=== PATIENT | female | born 1960 | race Two or more races ===

== ENCOUNTER 2019-10-04 08:37 | Inpatient (IN) | payer BC ==
[2019-10-04] MEDS ORDERED: ONDANSETRON 4 MG/2 ML VIAL IVPUSH ONE (09:00)
[2019-10-04] MEDS ORDERED: SODIUM CHLORIDE 1,000 ML IV STA ×2 (09:00→10:56)
--- NOTE | 2019-10-04 09:16 | PDOC ---
Attending Attestation - Resident Resident Name: Harpreet Devi - ED Attending Attestation I have performed the following: I have examined & evaluated the patient, The case was reviewed & discussed with the resident, I agree w/resident's findings & plan, Exceptions are as noted - HPI HPI: 10/04/19 09:29 59y F hx of htn, hl, iddm, presents with nbnb vomiting x 2 days associated with epigastric discomfort. Denies any hemetemsis, f/c, alex abd pain. Patient states that the discomfort is present when she tries to vomit, states that her vomitus looks like food denies seeing any blood or coffee-ground appearance. Patient states that her symptoms seem to be worse after eating. Denies prior similar sx in the past, nor ecent travel or known sick contacts. She also denies any other symptoms including chest pain, palpitations, headache, dizziness, Diarrhea, melena, BPR, dysuria, hematuria, vaginal discharge. Patient surgical history including 3 C-sections - Physicial Exam PE: 10/04/19 10:23 GENERAL: The patient is awake, alert, and fully oriented, Nontoxic - in no acute distress. HEAD: Normocephalic, atraumatic. EYES: extraocular movements intact, sclera anicteric, conjunctiva clear. ENT: Normal voice, Moist mucous membranes. NECK: Normal range of motion, supple LUNGS: Breath sounds equal, clear to auscultation bilaterally. No wheezes, no rhonchi, no rales. HEART: Regular rate and rhythm, normal S1 and S2 without murmur, rub or gallop. ABDOMEN: Soft, nontender, No guarding, no rebound. No CVA tenderness EXTREMITIES: Normal range of motion, no edema. NEUROLOGICAL: No facial assymetry, Normal speech, Moving all 4 extremities spontaneously and symmetrically PSYCH: Normal mood, normal affect. SKIN: Warm, Dry, normal turgor, - Medical Decision Making 10/04/19 10:23 Differential for the patient's symptoms include possible gastritis, there is no focal tenderness to suggest appendicitis, cholecystitis, obstruction or any other surgical emergency. Patient is also well-appearing, no distress Will obtain blood work will give the patient's antiemetic and Pepcid for symptomatic relief Will reassess 10/04/19 11:59 Patient's blood work was reviewed Glucose slightly elevated, likely due to not having taken medications Lactic acid also slightly elevated 2.2 should resolve with Hydration The patient's urine noted for elevated levels of bacteria suspicious for UTI. 10/04/19 12:15 Patient is feeling persistently nauseous, denies any Associated pain at this time, with attempted To tolerate water however still felt nauseous will give the patient some Phenergan. abd was resassessed and is soft and without tenderness will reassess 10/04/19 14:42 The patient's persistently nauseous and actively vomiting. Her abdomen is soft nontender however will obtain a CT of her abdomen to rule out obstruction As it is unclear why she still persistent the unable to tolerate oral intake. 10/04/19 16:42 CT noted for concentric wall thickening along length of duodenal sweep - underidstnsion vs enteritis pt still persistently nauseas/vomiting. will admit for further management. Heart Score/ECG Review - ECG Impressions Comment:: 10/04/19 14:38 Twelve-lead EKG was performed and reviewed by me. There is normal sinus rhythm with a normal rate. rate of 84 The axis is normal. Intervals normal marked sinus arrythmia
--- NOTE | 2019-10-04 09:22 | PDOC ---
History of Present Illness - General Chief Complaint: Nausea/Vomiting Stated Complaint: VOMITING Time Seen by Provider: 10/04/19 08:59 History Source: Patient Exam Limitations: No Limitations - History of Present Illness Initial Comments: 10/04/19 09:17 59 yo female pmh HTN, IDDM, HLD presents to the ED for NB/NB vomiting and epigastric abdominal pain. Pt states the symptoms began 2 days ago, vomiting over 10 times per day, unable to keep food or liquids down. Pain described as sharp, diffuse abdomen concentrated in the epigastric region, made worse with eating. Denies recent travel, sick contacts, F/C, CP, SOB, back pain, changes in bowel or bladder habits. Only abdominal surgery hysterectomy. Pt states recent change from Novolog to Tresiba. Did not take her medication this AM due to vomiting (Metoprolol 100 mg). Past History - Past Medical History Allergies/Adverse Reactions: Allergies Allergy/AdvReac Type Severity Reaction Status Date / Time No Known Allergies Allergy Verified 10/04/19 08:52 Home Medications: Ambulatory Orders Amlodipine Besylate 10 mg PO DAILY 10/04/19 Calcium Carbonate [Oysco-500] 500 mg PO DAILY 10/04/19 Chlorthalidone 12.5 mg PO DAILY 10/04/19 Empagliflozin [Jardiance] 10 mg PO DAILY 10/04/19 Ergocalciferol (Vitamin D2) [Vitamin D2] 50,000 unit PO DAILY 10/04/19 Folic Acid 1 mg PO DAILY 10/04/19 Insulin NPH Hum/Reg Insulin Hm [Novolin 70-30 Flexpen] 40 unit SQ ACDIN Insulin NPH Hum/Reg Insulin Hm [Novolin 70-30 Flexpen] 50 unit SQ ACBK 10/04/19 Liraglutide [Victoza -] 1.8 mg SQ DAILY 10/04/19 Lisinopril [Prinivil -] 40 mg PO DAILY 10/04/19 Metformin HCl [Glucophage] 1,000 mg PO BID 10/04/19 Metoprolol Succinate 100 mg PO DAILY 10/04/19 Pioglitazone HCl [Actos] 30 mg PO DAILY 10/04/19 Rosuvastatin [Crestor -] 40 mg PO DAILY 10/04/19 COPD: No Diabetes: Yes HTN: Yes Hypercholesterolemia: Yes Thyroid Disease: Yes Other medical history: arthritis, scoriasis - Immunization History Immunization Up to Date: Yes - Psycho Social/Smoking Cessation Hx Smoking History: Never smoked Hx Alcohol Use: No Drug/Substance Use Hx: No Review of Systems - Review of Systems Constitutional: No: Chills, Fever Respiratory: No: Shortness of Breath Cardiac (ROS): No: Chest Pain ABD/GI: Yes: Nausea, Vomiting, Other (abdominal pain). No: Constipated, Diarrhea : No: Burning, Dysuria, Flank Pain, Hematuria Musculoskeletal: No: Back Pain *Physical Exam - Vital Signs Last Vital Signs Temp Pulse Resp BP Pulse Ox 98.0 F 88 18 182/73 H 100 10/04/19 08:52 10/04/19 08:52 10/04/19 08:52 10/04/19 08:52 10/04/19 08:52 - Physical Exam General Appearance: Yes: Nourished, Appropriately Dressed HEENT: positive: EOMI Neck: positive: Supple. negative: Carotid bruit Respiratory/Chest: positive: Lungs Clear, Normal Breath Sounds. negative: Respiratory Distress, Accessory Muscle Use, Rapid RR, Crackles, Rales, Rhonchi, Stridor, Wheezing Cardiovascular: positive: Regular Rhythm, Regular Rate, S1, S2. negative: Edema , JVD, Murmur Vascular Pulses: Dorsalis-Pedis (R): 4+, Doralis-Pedis (L): 4+ Gastrointestinal/Abdominal: positive: Flat, Soft, Tenderness (epigastric and RUQ ). negative: Pulsatile Mass, Protuberent, Distended, Guarding, Rebound Musculoskeletal: negative: CVA Tenderness Extremity: positive: Normal Capillary Refill, Normal Inspection, Normal Range of Motion Integumentary: positive: Normal Color, Dry, Warm Neurologic: positive: Fully Oriented, Alert, Normal Mood/Affect ED Treatment Course - LABORATORY CBC & Chemistry Diagram: 10/04/19 09:00 10/04/19 09:00 Medical Decision Making - Medical Decision Making 10/04/19 09:50 59 yo female pmh HTN, IDDM, HLD presents to the ED for NB/NB vomiting and epigastric abdominal pain. Pt states the symptoms began 2 days ago, vomiting over 10 times per day, unable to keep food or liquids down. Pain described as sharp, diffuse abdomen concentrated in the epigastric region, made worse with eating. Denies recent travel, sick contacts, F/C, CP, SOB, back pain, changes in bowel or bladder habits. Only abdominal surgery hysterectomy. Pt states recent change from Novolog to Tresiba. Did not take her medication this AM due to vomiting (Metoprolol 100 mg). vitals show elevated CP 180s systolic, did not take BP medication, will give in the ED Labs including Cardiac profile sent fluids. pepcid, zofran given Bedside sono ED shows 2.6 mm AGW, not dilated, no stones, neg sono murphys, difficulty attaining CBD will reassess after medications and labs 10/04/19 12:16 Pt reports improvement in pain and denies vomiting in the ED however, she feels persistently nauseas. Will try promethazine and reassess 10/04/19 18:12 Pt has no relief, continues to vomit after multiple modalities CTAP done, neg for acute pathology Pt to be admitted for intractable vomiting, possible gastroperisis Discharge - Discharge Information Problems reviewed: Yes Clinical Impression/Diagnosis: Intractable vomiting with nausea - Admission Yes - Follow up/Referral - Patient Discharge Instructions - Post Discharge Activity
[2019-10-04] MEDS ORDERED: ONDANSETRON 4 MG/2 ML VIAL ONE (09:27)
[2019-10-04] MEDS ORDERED: METOPROLOL TARTRATE 50 MG TABLET (FP) PO ONE (09:49)
[2019-10-04 10:06] LABS: BASO % 0.7 % (0-2.0); HEMATOCRIT 40.6 % (32.4-45.2); HEMOGLOBIN 13.8 GM/dL (10.7-15.3); LYMPH % 13.5 % (8-40); MCH 28.2 pg (25.7-33.7); MEAN PLT VOLUME 8.6 fl (7.5-11.1); MONO % 4.6 % (3.8-10.2); NEUT % 81.2 % (42.8-82.8); PLATELET COUNT 351 K/MM3 (134-434); RBC 4.89 M/mm3 (3.60-5.2); WHITE BLOOD COUNT 11.6 K/mm3 (4.0-10.0)
[2019-10-04 10:18] LABS: INR 1.09 (0.83-1.09); PROTHROMBIN TIME (PATIENT) 12.9 SEC (9.7-13.0)
[2019-10-04] MEDS ORDERED: METOCLOPRAMIDE HCL INJECTION 10 MG/2 ML VIAL IVPUSH ONE (10:55)
[2019-10-04] MEDS ORDERED: METOCLOPRAMIDE HCL INJECTION 10 MG/2 ML VIAL ONE (10:56)
[2019-10-04 10:58] LABS: ALBUMIN 4.5 g/dl (3.4-5.0); ALK PHOS 63 U/L (45-117); ANION GAP 11 MMOL/L (8-16); BILIRUBIN,TOTAL 0.7 mg/dL (0.2-1); BLOOD UREA NITROGEN 13.9 mg/dL (7-18); CALCIUM 9.2 mg/dL (8.5-10.1); CHLORIDE 96 mmol/L (98-107); CO2 27 mmol/L (21-32); CREATININE 0.9 mg/dL (0.55-1.3); GLUCOSE,RANDOM 255 mg/dL (74-106); POTASSIUM 3.6 mmol/L (3.5-5.1); SGOT/AST 18 U/L (15-37); SGPT/ALT 27 U/L (13-61); SODIUM 135 mmol/L (136-145); TOT PROT 8.4 g/dl (6.4-8.2)
[2019-10-04] MEDS ORDERED: FAMOTIDINE 20 MG/50 ML IVPB 20 MG/50 ML MG IVPB ONE (11:00)
[2019-10-04 11:09] LABS: EPI CELLS 1.5 /HPF (0-5/HPF); HYALINE CASTS 2 /lpf (0-8); PH,URINE 8.5 (5.0-8.0); URINE APPEARANCE CLEAR; URINE BACTERIA 1509.8 /hpf (NEGATIVE); URINE BILIRUBIN NEGATIVE (NEGATIVE); URINE COLOR YELLOW; URINE GLUCOSE (UA) 3+ (NEGATIVE); URINE KETONE 3+ (NEGATIVE); URINE LEUK ESTERASE NEGATIVE (NEGATIVE); URINE NITRITE NEGATIVE (NEGATIVE); URINE PROTEIN 1+ (NEGATIVE); URINE RBC 2 /hpf (0-4); URINE UROBILINOGEN 0.2 mg/dL (0.2-1.0); URINE WBC 3 /hpf (0-5)
[2019-10-04] MEDS ORDERED: MAG HYDROX/AL HYDROX/SIMETH -MYLANTA- ORAL SUSPENSION PO ONE (12:15)
[2019-10-04] MEDS ORDERED: PROMETHAZINE HCL 25 MG/1 ML VIAL IVPUSH ONE (12:15)
[2019-10-04] MEDS ORDERED: PROMETHAZINE HCL 25 MG/1 ML VIAL ONE (13:22)
[2019-10-04] MEDS ORDERED: MAG HYDROX/AL HYDROX/SIMETH 30 ML UNIT-DOSE CUP ONE (13:22)
[2019-10-04 14:21] LABS: LIPASE 100 U/L (73-393)
--- NOTE | 2019-10-04 15:31 | EKG ---
Test Reason : Blood Pressure : / mmHG Vent. Rate : 084 BPM Atrial Rate : 084 BPM P-R Int : 170 ms QRS Dur : 100 ms QT Int : 402 ms P-R-T Axes : 036 040 027 degrees QTc Int : 475 ms SINUS RHYTHM WITH MARKED SINUS ARRHYTHMIA LEFT ATRIAL ENLARGEMENT WHEN COMPARED WITH ECG OF 04-AUG-2003 10:08, QT HAS LENGTHENED Confirmed by LEATHA STEVENS MD ([id number]) on 10/04/2019 3:31:32 PM Referred By: Confirmed By:LEATHA STEVENS MD
[2019-10-04] MEDS ORDERED: ONDANSETRON 4 MG/2 ML VIAL IVPUSH PRN (18:26)
[2019-10-04] MEDS ORDERED: TRIMETHOBENZAMIDE HCL 200MG/2ML INJ IM PRN (18:34)
--- NOTE | 2019-10-04 18:46 | HP ---
CHIEF COMPLAINT: VOMITING PCP: Dr. Ricketts ([facility]) HISTORY OF PRESENT ILLNESS: This is a 59 y/o F with a PMHx of HTN, IDDM, HLD who presents from home c/o constant nausea and NBNB vomiting for 3 days for a total of ten episodes. It is associated with myalgia, chills, and fatigue. Patient denies any recent travel, sick contacts, fevers, cough, sob, sore throat , rhinorrhea, cp, bowel complaints. She does not remember what she ate that day but endorses she is the only sick one out of those living with her and denies eating food from a restaurant. Pt admits to getting the flu shot this year. She lives in [place] at home with her daughter and mother. 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 ER course was notable for: (1) zofran given, IVF boluses (2) wbc 11.6 (3) LA- 2.2 that reduced to 1.1 Recent Travel: PAST MEDICAL HISTORY: as listed above PAST SURGICAL HISTORY: 3 c-sections Social History: Smoking:denies Alcohol:denies Drugs: denies Allergies No Known Allergies Allergy (Verified 10/04/19 08:52) HOME MEDICATIONS: Home Medications Medication Instructions Recorded Amlodipine Besylate 10 mg PO DAILY 10/04/19 Calcium Carbonate [Oysco-500] 500 mg PO DAILY 10/04/19 Chlorthalidone 12.5 mg PO DAILY 10/04/19 Empagliflozin [Jardiance] 10 mg PO DAILY 10/04/19 Ergocalciferol (Vitamin D2) 50,000 unit PO DAILY 10/04/19 [Vitamin D2] Folic Acid 1 mg PO DAILY 10/04/19 Insulin NPH Hum/Reg Insulin Hm 40 unit SQ ACDIN 10/04/19 [Novolin 70-30 Flexpen] Insulin NPH Hum/Reg Insulin Hm 50 unit SQ ACBK 10/04/19 [Novolin 70-30 Flexpen] Liraglutide [Victoza -] 1.8 mg SQ DAILY 10/04/19 Lisinopril [Prinivil -] 40 mg PO DAILY 10/04/19 Metformin HCl [Glucophage] 1,000 mg PO BID 10/04/19 Metoprolol Succinate 100 mg PO DAILY 10/04/19 Pioglitazone HCl [Actos] 30 mg PO DAILY 10/04/19 Rosuvastatin [Crestor -] 40 mg PO DAILY 10/04/19 REVIEW OF SYSTEMS Negative except above PHYSICAL EXAMINATION Vital Signs - 24 hr 10/04/19 10/04/19 10/04/19 08:52 09:56 13:22 Temperature 98.0 F 98.5 F 100.6 F H Pulse Rate 88 Pulse Rate [ Right Radial] Respiratory 18 Rate Blood Pressure 182/73 H Blood Pressure [Left Arm] O2 Sat by Pulse 100 Oximetry (%) 10/04/19 16:57 Temperature 98.7 F Pulse Rate Pulse Rate [ 90 Right Radial] Respiratory 18 Rate Blood Pressure Blood Pressure 158/78 [Left Arm] O2 Sat by Pulse 97 Oximetry (%) GENERAL: Awake, alert, and fully oriented, in no acute distress. LUNGS: Breath sounds equal, clear to auscultation bilaterally. No wheezes, and no crackles. No accessory muscle use. HEART: Regular rate and rhythm, normal S1 and S2 without murmur, rub or gallop. ABDOMEN: Soft, nontender, not distended, normoactive bowel sounds, no guarding, but LLQ pain that radiates to her back. LOWER EXTREMITIES: 2+ pulses, warm, well-perfused. No calf tenderness. No peripheral edema. NEUROLOGICAL: Cranial nerves II-XII intact. Normal speech. Normal gait. PSYCHIATRIC: Cooperative. Good eye contact. Appropriate mood and affect. SKIN: Warm, dry, normal turgor, no rashes or lesions noted, poor capillary refill. Laboratory Results - last 24 hr 10/04/19 10/04/19 10/04/19 09:00 09:00 09:00 WBC 11.6 H RBC 4.89 Hgb 13.8 Hct 40.6 MCV 83.0 MCH 28.2 MCHC 34.0 RDW 14.0 Plt Count 351 MPV 8.6 Absolute Neuts (auto) 9.4 H Neutrophils % 81.2 Lymphocytes % 13.5 Monocytes % 4.6 Eosinophils % 0.0 Basophils % 0.7 Nucleated RBC % 0 PT with INR 12.90 INR 1.09 Sodium 135 L Potassium 3.6 Chloride 96 L Carbon Dioxide 27 Anion Gap 11 BUN 13.9 Creatinine 0.9 Est GFR (CKD-EPI)AfAm 81.11 Est GFR (CKD-EPI)NonAf 69.99 POC Glucometer Random Glucose 255 H Lactic Acid Calcium 9.2 Magnesium 2.0 Total Bilirubin 0.7 AST 18 ALT 27 Alkaline Phosphatase 63 Creatine Kinase 307 H Creatine Kinase Index 0.3 CK-MB (CK-2) 1.2 Troponin I < 0.02 Total Protein 8.4 H Albumin 4.5 Lipase 100 Urine Color Urine Appearance Urine pH Ur Specific [place] Urine Protein Urine Glucose (UA) Urine Ketones Urine Blood Urine Nitrite Urine Bilirubin Urine Urobilinogen Ur Leukocyte Esterase Urine WBC (Auto) Urine RBC (Auto) Urine Casts (Auto) U Epithel Cells (Auto) Urine Bacteria (Auto) 10/04/19 10/04/19 10/04/19 09:24 09:37 10:40 WBC RBC Hgb Hct MCV MCH MCHC RDW Plt Count MPV Absolute Neuts (auto) Neutrophils % Lymphocytes % Monocytes % Eosinophils % Basophils % Nucleated RBC % PT with INR INR Sodium Potassium Chloride Carbon Dioxide Anion Gap BUN Creatinine Est GFR (CKD-EPI)AfAm Est GFR (CKD-EPI)NonAf POC Glucometer 256 Random Glucose Lactic Acid 2.2 H* Calcium Magnesium Total Bilirubin AST ALT Alkaline Phosphatase Creatine Kinase Creatine Kinase Index CK-MB (CK-2) Troponin I Total Protein Albumin Lipase Urine Color Yellow Urine Appearance Clear Urine pH 8.5 H Ur Specific [place] 1.020 Urine Protein 1+ H Urine Glucose (UA) 3+ H Urine Ketones 3+ H Urine Blood Negative Urine Nitrite Negative Urine Bilirubin Negative Urine Urobilinogen 0.2 Ur Leukocyte Esterase Negative Urine WBC (Auto) 3 Urine RBC (Auto) 2 Urine Casts (Auto) 2 U Epithel Cells (Auto) 1.5 Urine Bacteria (Auto) 1509.8 10/04/19 16:45 WBC RBC Hgb Hct MCV MCH MCHC RDW Plt Count MPV Absolute Neuts (auto) Neutrophils % Lymphocytes % Monocytes % Eosinophils % Basophils % Nucleated RBC % PT with INR INR Sodium Potassium Chloride Carbon Dioxide Anion Gap BUN Creatinine Est GFR (CKD-EPI)AfAm Est GFR (CKD-EPI)NonAf POC Glucometer Random Glucose Lactic Acid 1.2 Calcium Magnesium Total Bilirubin AST ALT Alkaline Phosphatase Creatine Kinase Creatine Kinase Index CK-MB (CK-2) Troponin I Total Protein Albumin Lipase Urine Color Urine Appearance Urine pH Ur Specific [place] Urine Protein Urine Glucose (UA) Urine Ketones Urine Blood Urine Nitrite Urine Bilirubin Urine Urobilinogen Ur Leukocyte Esterase Urine WBC (Auto) Urine RBC (Auto) Urine Casts (Auto) U Epithel Cells (Auto) Urine Bacteria (Auto) ASSESSMENT/PLAN: This is a 59 y/o F with a PMHx of HTN, IDDM, HLD who presents from home c/o constant nausea and NBNB vomiting for 3 days for a total of ten episodes. #Intractable vomiting - likely 2/2 gastroenteritis vs flu vs gastroperesis - influenza A and B negative - CT abd/pelvis showing no bowel obstruction, mild wall thickening along duodenal sweep, ? mild thickening indicating enteritis, gastric fundus possible thickening posteriorly. Diffuse fatty liver - wbc 11.6, L.A. normalized after fluids likely due to dehydration - npo untill clinical status improves, will advance as tolerated - IV NS 75cc/hr, zofran 4mg q6prn for n/v - Tigan prn q8 to decrease likelihood of prolonging qtc. - UA, ua cx ordered w/ bacteria neg leuk est, nitrites, 3+ ketones and glucose due to being on sglt2 inhibitor. - [place] prn for indigestion - blood cx ordered #IDDM - HOLD HOME MEDS - iss achs - bgm achs - a1c #HTN - continue home meds #HTN continue home meds DVT ppx: Hep 5K TID Visit type - Emergency Visit Emergency Visit: Yes ED Registration Date: 10/04/19 Care time: The patient presented to the Emergency Department on the above date and was hospitalized for further evaluation of their emergent condition. - New Patient This patient is new to me today: Yes Date on this admission: 10/05/19 - Critical Care Critical Care patient: No ATTENDING PHYSICIAN STATEMENT I saw and evaluated the patient. I reviewed the resident's note and discussed the case with the resident. I agree with the resident's findings and plan as documented. SUBJECTIVE: OBJECTIVE: ASSESSMENT AND PLAN:
[2019-10-04] MEDS: SODIUM CHLORIDE 1,000 ML IV SCH (19:06)
[2019-10-04 20:35] LABS: URINE APPEARANCE CLEAR; URINE COLOR YELLOW
[2019-10-04 20:38] LABS: URINE GLUCOSE (UA) 1+ (NEGATIVE)
[2019-10-04 20:39] LABS: URINE BILIRUBIN NEGATIVE (NEGATIVE); URINE KETONE 2+ (NEGATIVE)
[2019-10-04 20:40] LABS: PH,URINE 6.5 (5.0-8.0); URINE LEUK ESTERASE NEGATIVE (NEGATIVE); URINE NITRITE NEGATIVE (NEGATIVE); URINE PROTEIN 2+ (NEGATIVE)
[2019-10-04 20:46] LABS: EPI CELLS 0.2 /HPF (0-5/HPF); HYALINE CASTS 0 /lpf (0-8); URINE BACTERIA 19812.8 /hpf (NEGATIVE); URINE RBC 2.4 /hpf (0-4); URINE WBC 22.9 /hpf (0-5)
[2019-10-04] MEDS: INSULIN SLIDING SCALE (NOVOLOG) 1 VIAL SQ SCH (21:51)
[2019-10-04] MEDS: HEPARIN NA (PORCINE) 5,000 UNITS/ML 1ML VIAL SQ SCH (21:52)
[2019-10-04] MEDS: GABAPENTIN 300 MG CAPSULE PO SCH (21:52)
[2019-10-04] MEDS: ONDANSETRON 4 MG/2 ML VIAL IVPUSH PRN (23:54)
[2019-10-05 00:22] VITALS: BMI 29.0
[2019-10-05] MEDS: SODIUM CHLORIDE 1,000 ML IV SCH ×2 (02:54→18:09)
--- NOTE | 2019-10-05 04:32 | PN ---
Teaching Attending Note Name of Resident: Nikita Melo ATTENDING PHYSICIAN STATEMENT I saw and evaluated the patient. I reviewed the resident's note and discussed the case with the resident. I agree with the resident's findings and plan as documented. SUBJECTIVE: 59 yo female w/ HTN, IDDM, HLD presents w/ NB/NB vomiting and epigastric abdominal for about 2 days. Patient is unable to keep down liquids or solids. Denies any fevers or chills. Patient has a longstanding history of diabetes mellitus, denies any prior vomiting episodes such as this one. OBJECTIVE: Last Vital Signs Temp Pulse Resp BP Pulse Ox 98.9 F 87 20 138/69 98 10/05/19 01:00 10/05/19 01:00 10/05/19 01:00 10/05/19 01:10/04/19 20:45 GENERAL: Well developed, well nourished. Awake and alert. No acute distress. HEENT: Normocephalic, atraumatic. PERRLA, EOMI. No conjunctival pallor. Sclera are non- icteric.Dry oral mucosa. NECK: Supple. Full ROM. No JVD. Carotid pulses 2+ and symmetric, without bruits. No thyromegaly. No lymphadenopathy. CARDIOVASCULAR: Regular rate and rhythm. No murmurs, rubs, or gallops. Distal pulses are 2+ and symmetric. PULMONARY: No evidence of respiratory distress. Lungs clear to auscultation bilaterally. No wheezing, rales or rhonchi. ABDOMINAL: Soft. Non-tender. Non-distended. No rebound or guarding. No organomegaly. Normoactive bowel sounds. MUSCULOSKELETAL Normal range of motion at all joints. No bony deformities or tenderness. No CVA tenderness. EXTREMITIES: No cyanosis. No clubbing. No edema. No calf tenderness. SKIN: Warm and dry. Normal capillary refill. No rashes. No jaundice. PSYCHIATRIC: Cooperative. Good eye contact. Appropriate mood and affect. Abnormal Lab Results 10/04/19 10/04/19 10/04/19 09:00 09:00 09:24 WBC 11.6 H Absolute Neuts (auto) 9.4 H Sodium 135 L Chloride 96 L Random Glucose 255 H Lactic Acid 2.2 H* Creatine Kinase 307 H Total Protein 8.4 H Urine pH Ur Specific [place] Urine Protein Urine Glucose (UA) Urine Ketones Urine Blood 10/04/19 10/04/19 10:40 18:48 WBC Absolute Neuts (auto) Sodium Chloride Random Glucose Lactic Acid Creatine Kinase Total Protein Urine pH 8.5 H Ur Specific [place] 1.072 H Urine Protein 1+ H 2+ H Urine Glucose (UA) 3+ H 1+ H Urine Ketones 3+ H 2+ H Urine Blood 1+ H Imaging studies reviewed ASSESSMENT AND PLAN: 59-year-old woman with intractable vomiting. Uncertain etiology but differential diagnosis includes gastroenteritis. Should rule out gastroparesis secondary to uncontrolled diabetes mellitus. Severe hyperglycemia on blood draw with glucose of 255. Admit to MedSurg IV fluid hydration Zofran IV as needed for nausea and vomiting Advance diet with clear liquids Tight glycemic control Check electrolytes and correct PRN #Electrolyte derangementshypochloremia, hyponatremialikely secondary to persistent vomiting. Lactic acidosis Replete electrolytes PRN IV fluid hydration with normal saline #Hyperglycemia A1c NovoLog sliding scale Basal insulin #DVT prophylaxisheparin subcutaneously
[2019-10-05] MEDS: HEPARIN NA (PORCINE) 5,000 UNITS/ML 1ML VIAL SQ SCH ×3 (06:13→22:01)
[2019-10-05] MEDS: LEVOTHYROXINE NA 125 MCG TABLET (FP) PO SCH (07:04)
[2019-10-05] MEDS: INSULIN SLIDING SCALE (NOVOLOG) 1 VIAL SQ SCH ×4 (07:06→22:01)
[2019-10-05 08:26] LABS: BASO % 0.7 % (0-2.0); EOS % 0.3 % (0-4.5); HEMATOCRIT 37.9 % (32.4-45.2); HEMOGLOBIN 13.1 GM/dL (10.7-15.3); LYMPH % 21.6 % (8-40); MCH 28.9 pg (25.7-33.7); MCHC 34.6 g/dl (32.0-36.0); MEAN CELL VOLUME 83.6 fl (80-96); MEAN PLT VOLUME 8.5 fl (7.5-11.1); MONO % 7.4 % (3.8-10.2); PLATELET COUNT 332 K/MM3 (134-434); RBC 4.54 M/mm3 (3.60-5.2); RDW 14.5 % (11.6-15.6); WHITE BLOOD COUNT 10.1 K/mm3 (4.0-10.0)
[2019-10-05 08:55] LABS: ALBUMIN 3.7 g/dl (3.4-5.0); BILIRUBIN,TOTAL 0.8 mg/dL (0.2-1); BLOOD UREA NITROGEN 12.6 mg/dL (7-18); CALCIUM 7.9 mg/dL (8.5-10.1); CREATININE 0.8 mg/dL (0.55-1.3); MAGNESIUM 1.7 mg/dL (1.8-2.4); PHOSPHOROUS 3.1 mg/dL (2.5-4.9); POTASSIUM 3.5 mmol/L (3.5-5.1); TOT PROT 7.5 g/dl (6.4-8.2)
[2019-10-05] MEDS ORDERED: ERGOCALCIFEROL (VIT D2) 50,000 UNIT (1.25 MG) CAPSULE PO SCH (10:00)
[2019-10-05] MEDS: LISINOPRIL 20 MG TABLET (FP) PO SCH (10:39)
[2019-10-05] MEDS: amLODIPine BESYLATE 10 MG TABLET (FP) PO SCH (10:39)
[2019-10-05] MEDS: FOLIC ACID 1 MG TABLET (FP) PO SCH (10:39)
[2019-10-05] MEDS: CALCIUM (OYSTER SHELL) 500 MG TABLET (FP) PO SCH (10:39)
[2019-10-05] MEDS: CHLORTHALIDONE 25 MG TABLET PO SCH (11:25)
[2019-10-05] MEDS: MAGNESIUM SULF 50% (8.12 MEQ/2 ML-1 GM VIAL) IVPB SCH ×2 (14:04→14:53)
[2019-10-05] MEDS: ONDANSETRON 4 MG/2 ML VIAL IVPUSH PRN ×2 (14:04→19:59)
--- NOTE | 2019-10-05 17:29 | PN ---
Physical Exam: SUBJECTIVE: Patient seen and examined; TSH high but T4 wnl. BMP wnl; sx improved. Hemodynamics stable saturating well no new complaints. 10 sys ROS done and negative aside from HPI OBJECTIVE: Vital Signs Period Temp Pulse Resp BP Sys/Traylor Pulse Ox Last 24 Hr 98.1 F-99.3 F 71-98 18-20 138-187/67-83 98-100 GENERAL: The patient is awake, alert, and fully oriented, in no acute distress. HEAD: Normal with no signs of trauma. EYES: PERRL, extraocular movements intact, sclera anicteric, conjunctiva clear. No ptosis. ENT: Ears normal, nares patent, oropharynx clear without exudates, moist mucous membranes. NECK: Trachea midline, full range of motion, supple. LUNGS: Breath sounds equal, clear to auscultation bilaterally, no wheezes, no crackles, no accessory muscle use. HEART: Regular rate and rhythm, S1, S2 without murmur, rub or gallop. ABDOMEN: Soft, nontender, nondistended, normoactive bowel sounds, no guarding, no rebound, no hepatosplenomegaly, no masses. EXTREMITIES: 2+ pulses, warm, well-perfused, no edema. NEUROLOGICAL: Cranial nerves II through XII grossly intact. Normal speech, gait not observed. PSYCH: Normal mood, normal affect. SKIN: Warm, dry, normal turgor, no rashes or lesions noted Laboratory Results - last 24 hr 10/04/19 10/04/19 10/04/19 16:45 18:48 18:48 WBC RBC Hgb Hct MCV MCH MCHC RDW Plt Count MPV Absolute Neuts (auto) Neutrophils % Lymphocytes % Monocytes % Eosinophils % Basophils % Nucleated RBC % Sodium Potassium Chloride Carbon Dioxide Anion Gap BUN Creatinine Est GFR (CKD-EPI)AfAm Est GFR (CKD-EPI)NonAf POC Glucometer Random Glucose Lactic Acid 1.2 Calcium Phosphorus Magnesium Total Bilirubin AST ALT Alkaline Phosphatase Troponin I Total Protein Albumin TSH Free T4 Urine Color Yellow Urine Appearance Clear Urine pH 6.5 D Ur Specific Margaret 1.072 H Urine Protein 2+ H Urine Glucose (UA) 1+ H Urine Ketones 2+ H Urine Blood 1+ H Urine Nitrite Negative Urine Bilirubin Negative Urine Urobilinogen 1.0 Ur Leukocyte Esterase Negative Urine WBC (Auto) 22.9 Urine RBC (Auto) 2.4 Urine Casts (Auto) 0 U Epithel Cells (Auto) 0.2 Urine Bacteria (Auto) 60405.8 Influenza A (Rapid) Negative Influenza B (Rapid) Negative 10/04/19 10/04/19 10/04/19 18:52 19:09 21:46 WBC RBC Hgb Hct MCV MCH MCHC RDW Plt Count MPV Absolute Neuts (auto) Neutrophils % Lymphocytes % Monocytes % Eosinophils % Basophils % Nucleated RBC % Sodium Potassium Chloride Carbon Dioxide Anion Gap BUN Creatinine Est GFR (CKD-EPI)AfAm Est GFR (CKD-EPI)NonAf POC Glucometer 187 173 Random Glucose Lactic Acid Calcium Phosphorus Magnesium Total Bilirubin AST ALT Alkaline Phosphatase Troponin I < 0.02 Total Protein Albumin TSH Free T4 Urine Color Urine Appearance Urine pH Ur Specific Margaret Urine Protein Urine Glucose (UA) Urine Ketones Urine Blood Urine Nitrite Urine Bilirubin Urine Urobilinogen Ur Leukocyte Esterase Urine WBC (Auto) Urine RBC (Auto) Urine Casts (Auto) U Epithel Cells (Auto) Urine Bacteria (Auto) Influenza A (Rapid) Influenza B (Rapid) 10/05/19 10/05/19 10/05/19 07:00 07:40 07:40 WBC 10.1 H RBC 4.54 Hgb 13.1 Hct 37.9 MCV 83.6 MCH 28.9 MCHC 34.6 RDW 14.5 Plt Count 332 MPV 8.5 Absolute Neuts (auto) 7.1 Neutrophils % 70.0 Lymphocytes % 21.6 D Monocytes % 7.4 Eosinophils % 0.3 D Basophils % 0.7 Nucleated RBC % 0 Sodium 136 Potassium 3.5 Chloride 99 Carbon Dioxide 27 Anion Gap 10 BUN 12.6 Creatinine 0.8 Est GFR (CKD-EPI)AfAm 93.53 Est GFR (CKD-EPI)NonAf 80.70 POC Glucometer 188 Random Glucose 183 H Lactic Acid Calcium 7.9 L Phosphorus 3.1 Magnesium 1.7 L Total Bilirubin 0.8 AST 16 ALT 26 Alkaline Phosphatase 60 Troponin I Total Protein 7.5 Albumin 3.7 TSH 6.95 H Free T4 1.36 Urine Color Urine Appearance Urine pH Ur Specific Margaret Urine Protein Urine Glucose (UA) Urine Ketones Urine Blood Urine Nitrite Urine Bilirubin Urine Urobilinogen Ur Leukocyte Esterase Urine WBC (Auto) Urine RBC (Auto) Urine Casts (Auto) U Epithel Cells (Auto) Urine Bacteria (Auto) Influenza A (Rapid) Influenza B (Rapid) 10/05/19 11:08 WBC RBC Hgb Hct MCV MCH MCHC RDW Plt Count MPV Absolute Neuts (auto) Neutrophils % Lymphocytes % Monocytes % Eosinophils % Basophils % Nucleated RBC % Sodium Potassium Chloride Carbon Dioxide Anion Gap BUN Creatinine Est GFR (CKD-EPI)AfAm Est GFR (CKD-EPI)NonAf POC Glucometer 160 Random Glucose Lactic Acid Calcium Phosphorus Magnesium Total Bilirubin AST ALT Alkaline Phosphatase Troponin I Total Protein Albumin TSH Free T4 Urine Color Urine Appearance Urine pH Ur Specific Margaret Urine Protein Urine Glucose (UA) Urine Ketones Urine Blood Urine Nitrite Urine Bilirubin Urine Urobilinogen Ur Leukocyte Esterase Urine WBC (Auto) Urine RBC (Auto) Urine Casts (Auto) U Epithel Cells (Auto) Urine Bacteria (Auto) Influenza A (Rapid) Influenza B (Rapid) Active Medications Generic Name Dose Route Start Last Admin Trade Name Freq PRN Reason Stop Dose Admin Al Hydroxide/Mg Hydroxide 30 ml 10/04/19 19:00 Mylanta Oral Suspension - PO Q6H PRN DYSPEPSIA Amlodipine Besylate 10 mg 10/05/19 10:00 10/05/19 10:39 Norvasc - PO 10 mg DAILY ALCIDES Administration Calcium Carbonate 500 mg 10/05/19 10:00 10/05/19 10:39 Os-Natalio 500mg - PO 500 mg DAILY ALCIDES Administration Chlorthalidone 12.5 mg 10/05/19 10:00 10/05/19 11:25 Hygroton - PO 12.5 mg DAILY ALCIDES Administration Folic Acid 1 mg 10/05/19 10:00 10/05/19 10:39 Folic Acid - PO 1 mg DAILY ALCIDES Administration Gabapentin 300 mg 10/04/19 22:00 10/04/19 21:52 Neurontin - PO 300 mg HS ALCIDES Administration Heparin Sodium (Porcine) 5,000 unit 10/04/19 22:00 10/05/19 14:10 Heparin - SQ 5,000 unit TID ALCIDES Administration Sodium Chloride 1,000 mls @ 75 mls/hr 10/04/19 18:30 10/05/19 02:54 Normal Saline - IV 75 mls/hr ASDIR ALCIDES Administration Insulin Aspart 1 vial 10/04/19 22:00 10/05/19 11:10 Novolog Vial Sliding Scale - SQ 2 unit ACHS ALCIDES Administration Protocol Levothyroxine Sodium 125 mcg 10/05/19 07:00 02/08/20 07:04 Synthroid - PO 125 mcg DAILY@0700 ALCIDES Administration Lisinopril 40 mg 10/05/19 10:00 10/05/19 10:39 Prinivil PO 40 mg DAILY ALCIDES Administration Metoprolol Succinate 100 mg 10/05/19 10:00 10/05/19 10:39 Toprol Xl - PO 100 mg DAILY ALCIDES Administration Ondansetron HCl 4 mg 10/04/19 18:34 10/05/19 14:04 Zofran Injection IVPUSH 4 mg Q6H PRN Administration NAUSEA AND/OR VOMITING Rosuvastatin Calcium 40 mg 10/05/19 22:00 Crestor - PO HS ALCIDES Trimethobenzamide HCl 200 mg 10/04/19 18:34 Tigan Injection - IM Q8H PRN NAUSEA CT abd/pelvis shows possible concentric wall thickening possibly consistent with enteritis; nonspecific wall thickening of the gastric fundus is seen posteriorly which should be correlated with endoscopy as per radiology ASSESSMENT/PLAN: Patient presents with likely enteritis found to have nonspecific gastric wall thickening around the fundus. On full liquid; consulting GI to determine if there is need for inpatient endoscopy vs. outpatient. Problem list: -Enteritis; changing to IV protonix with sucralfate, full liquid diet and consult GI -Intractable vomiting -Hx HLD -Hx HTN -Hx Hypothyroidism; high TSH FT4 wnl, can FU OP Full code Visit type - Emergency Visit Emergency Visit: Yes ED Registration Date: 10/04/19 Care time: The patient presented to the Emergency Department on the above date and was hospitalized for further evaluation of their emergent condition. - New Patient This patient is new to me today: Yes Date on this admission: 10/05/19 - Critical Care Critical Care patient: No
[2019-10-05 18:00] LABS: COCAINE, UR NEGATIVE ng/ml (CUTOFF=300); METHADONE, UR NEGATIVE ng/ml (CUTOFF=300); OPIATES, URI NEGATIVE ng/ml (CUTOFF=300); PHENCYCLIDINE,URINE NEGATIVE ng/ml (CUTOFF=25); URINE AMPHETAMINES NEGATIVE ng/ml (CUTOFF=500); URINE BARBITURATES NEGATIVE ng/ml (CUTOFF=200); URINE BENZODIAZEPINES NEGATIVE ng/ml (CUTOFF=200)
[2019-10-05] MEDS: ROSUVASTATIN CA 20 MG TABLET (FP) PO SCH (22:01)
[2019-10-05] MEDS: GABAPENTIN 300 MG CAPSULE PO SCH (22:01)
[2019-10-06] MEDS ORDERED: MELATONIN 5 MG TABLETS PO ONE (01:30)
[2019-10-06] MEDS: HEPARIN NA (PORCINE) 5,000 UNITS/ML 1ML VIAL SQ SCH ×3 (06:23→21:46)
[2019-10-06] MEDS: LEVOTHYROXINE NA 125 MCG TABLET (FP) PO SCH (06:24)
[2019-10-06] MEDS: INSULIN SLIDING SCALE (NOVOLOG) 1 VIAL SQ SCH ×4 (06:26→21:45)
[2019-10-06] MEDS: ONDANSETRON 4 MG/2 ML VIAL IVPUSH PRN ×3 (06:30→22:01)
[2019-10-06] MEDS: MAG HYDROX/AL HYDROX/SIMETH 30 ML UNIT-DOSE CUP PO PRN ×2 (06:35→22:01)
--- NOTE | 2019-10-06 08:47 | CON.GI ---
Consult Consult Specialty:: GI coverage for Dr Cao - History of Present Illness History of Present Illness: 59 y/o F with PMH of DM was doing well until 2 days prior to admission when she developed epigastric pain associated with nausea and vomiting. EKG revealed prolonged QT interval. CT was reviewed there was thcikening of the gastric wall and duodenal sweep could be under distended. Tried clear liquids this morning, she did not tolerate and continued to vomit. - Alcohol/Substance Use Hx Alcohol Use: No - Smoking History Smoking history: Never smoked Home Medications - Allergies Allergies/Adverse Reactions: Allergies Allergy/AdvReac Type Severity Reaction Status Date / Time No Known Allergies Allergy Verified 10/04/19 08:52 - Home Medications Home Medications: Ambulatory Orders Amlodipine Besylate 10 mg PO DAILY 10/04/19 Calcium Carbonate [Oysco-500] 500 mg PO DAILY 10/04/19 Chlorthalidone 12.5 mg PO DAILY 10/04/19 Empagliflozin [Jardiance] 10 mg PO DAILY 10/04/19 Ergocalciferol (Vitamin D2) [Vitamin D2] 50,000 unit PO DAILY 10/04/19 Folic Acid 1 mg PO DAILY 10/04/19 Gabapentin [Neurontin] 300 mg PO HS 10/04/19 Insulin NPH Hum/Reg Insulin Hm [Novolin 70-30 Flexpen] 40 unit SQ ACDIN Insulin NPH Hum/Reg Insulin Hm [Novolin 70-30 Flexpen] 50 unit SQ ACBK 10/04/19 Levothyroxine [Synthroid -] 125 mcg PO DAILY 10/04/19 Liraglutide [Victoza -] 1.8 mg SQ DAILY 10/04/19 Lisinopril [Prinivil -] 40 mg PO DAILY 10/04/19 Metformin HCl [Glucophage] 1,000 mg PO BID 10/04/19 Metoprolol Succinate 100 mg PO DAILY 10/04/19 Pioglitazone HCl [Actos] 30 mg PO DAILY 10/04/19 Rosuvastatin [Crestor -] 40 mg PO DAILY 10/04/19 Physical Exam-GI Vital Signs: Vital Signs Temperature 98.1 F 10/06/19 06:00 Pulse Rate 68 10/06/19 06:00 Respiratory Rate 20 10/06/19 06:00 Blood Pressure 125/57 L 10/06/19 06:00 O2 Sat by Pulse Oximetry (%) 95 10/05/19 20:08 Constitutional: Yes: Well Nourished Eyes: Yes: Conjunctiva Clear HENT: Yes: Atraumatic Neck: Yes: Supple Cardiovascular: Yes: Regular Rate and Rhythm, Murmur Respiratory: Yes: CTA Bilaterally ...Auscultate: Yes: Normoactive Bowel Sounds ...Palpate: Yes: Soft, Tenderness, Epigastium. No: Firm/Rigid, Guarding, Hepatomegaly, Mass, Pulsatile Mass, Splenomegaly Labs: CBC, BMP 10/05/19 07:40 10/05/19 07:40 INR, PTT INR 1.09 (0.83-1.09) 10/04/19 09:00 CBCD WBC 10.1 K/mm3 (4.0-10.0) H 10/05/19 07:40 RBC 4.54 M/mm3 (3.60-5.2) 10/05/19 07:40 Hgb 13.1 GM/dL (10.7-15.3) 10/05/19 07:40 Hct 37.9 % (32.4-45.2) 10/05/19 07:40 MCV 83.6 fl (80-96) 10/05/19 07:40 MCHC 34.6 g/dl (32.0-36.0) 10/05/19 07:40 RDW 14.5 % (11.6-15.6) 10/05/19 07:40 Plt Count 332 K/MM3 (134-434) 10/05/19 07:40 MPV 8.5 fl (7.5-11.1) 10/05/19 07:40 CMP Sodium 136 mmol/L (136-145) 10/05/19 07:40 Potassium 3.5 mmol/L (3.5-5.1) 10/05/19 07:40 Chloride 99 mmol/L (98-107) 10/05/19 07:40 Carbon Dioxide 27 mmol/L (21-32) 10/05/19 07:40 Anion Gap 10 MMOL/L (8-16) 10/05/19 07:40 BUN 12.6 mg/dL (7-18) 10/05/19 07:40 Creatinine 0.8 mg/dL (0.55-1.3) 10/05/19 07:40 Random Glucose 183 mg/dL (74-106) H 10/05/19 07:40 Calcium 7.9 mg/dL (8.5-10.1) L 10/05/19 07:40 Total Bilirubin 0.8 mg/dL (0.2-1) 10/05/19 07:40 AST 16 U/L (15-37) 10/05/19 07:40 ALT 26 U/L (13-61) 10/05/19 07:40 Alkaline Phosphatase 60 U/L (45-117) 10/05/19 07:40 Total Protein 7.5 g/dl (6.4-8.2) 10/05/19 07:40 Albumin 3.7 g/dl (3.4-5.0) 10/05/19 07:40 CARDIAC ENZYMES Creatine Kinase 307 U/L (26-192) H 10/04/19 09:00 Troponin I < 0.02 ng/ml (0.00-0.05) 10/04/19 18:52 Home Medications Medication Instructions Recorded Amlodipine Besylate 10 mg PO DAILY 10/04/19 Calcium Carbonate [Oysco-500] 500 mg PO DAILY 10/04/19 Chlorthalidone 12.5 mg PO DAILY 10/04/19 Empagliflozin [Jardiance] 10 mg PO DAILY 10/04/19 Ergocalciferol (Vitamin D2) 50,000 unit PO DAILY 10/04/19 [Vitamin D2] Folic Acid 1 mg PO DAILY 10/04/19 Gabapentin [Neurontin] 300 mg PO HS 10/04/19 Insulin NPH Hum/Reg Insulin Hm 40 unit SQ ACDIN 10/04/19 [Novolin 70-30 Flexpen] Insulin NPH Hum/Reg Insulin Hm 50 unit SQ ACBK 10/04/19 [Novolin 70-30 Flexpen] Levothyroxine [Synthroid -] 125 mcg PO DAILY 10/04/19 Liraglutide [Victoza -] 1.8 mg SQ DAILY 10/04/19 Lisinopril [Prinivil -] 40 mg PO DAILY 10/04/19 Metformin HCl [Glucophage] 1,000 mg PO BID 10/04/19 Metoprolol Succinate 100 mg PO DAILY 10/04/19 Pioglitazone HCl [Actos] 30 mg PO DAILY 10/04/19 Rosuvastatin [Crestor -] 40 mg PO DAILY 10/04/19 Imaging - Results Cat Scan: Report Reviewed, Image Reviewed Problem List - Problems (1) Intractable vomiting with nausea Assessment/Plan: associated with abnormal ct showing, thickened stomach and duodenum R> for EGD continue Pantoprazole Zofran 4mg x1 simethicone 80mg qid Code(s): R11.2 - NAUSEA WITH VOMITING, UNSPECIFIED
[2019-10-06] MEDS ORDERED: PT OWN MED DRAWER 7, Y5N ONE (10:53)
[2019-10-06] MEDS: LISINOPRIL 20 MG TABLET (FP) PO SCH (10:55)
[2019-10-06] MEDS: CALCIUM (OYSTER SHELL) 500 MG TABLET (FP) PO SCH (10:55)
[2019-10-06] MEDS: FOLIC ACID 1 MG TABLET (FP) PO SCH (10:55)
[2019-10-06] MEDS: CHLORTHALIDONE 25 MG TABLET PO SCH (10:55)
[2019-10-06] MEDS: amLODIPine BESYLATE 10 MG TABLET (FP) PO SCH (10:55)
[2019-10-06] MEDS ORDERED: MECLIZINE HCL 12.5 MG TABLET PO ONE (14:15)
--- NOTE | 2019-10-06 18:36 | PN ---
Physical Exam: SUBJECTIVE: Patient seen and examined; no new complaints. Still with some nausea, heart rate between 68 and 80 with normal blood pressures and no desaturations. Spoke with Dr. Goodman and the patient will be going for endoscopy tomorrow. 10 item review of systems completed and is negative aside from as discussed in the subjective data in my own/the resident documentation. OBJECTIVE: Vital Signs Period Temp Pulse Resp BP Sys/Traylor Pulse Ox Last 24 Hr 97.4 F-98.8 F 68-80 18-20 125-164/57-74 95-95 GENERAL: The patient is awake, alert, and fully oriented, in no acute distress. HEAD: Normal with no signs of trauma. EYES: PERRL, extraocular movements intact, sclera anicteric, conjunctiva clear. No ptosis. ENT: Ears normal, nares patent, oropharynx clear without exudates, moist mucous membranes. NECK: Trachea midline, full range of motion, supple. LUNGS: Breath sounds equal, clear to auscultation bilaterally, no wheezes, no crackles, no accessory muscle use. HEART: Regular rate and rhythm, S1, S2 without murmur, rub or gallop. ABDOMEN: Soft, nontender, nondistended, normoactive bowel sounds, no guarding, no rebound, no hepatosplenomegaly, no masses. EXTREMITIES: 2+ pulses, warm, well-perfused, no edema. NEUROLOGICAL: Cranial nerves II through XII grossly intact. Normal speech, gait not observed. PSYCH: Normal mood, normal affect. SKIN: Warm, dry, normal turgor, no rashes or lesions noted Laboratory Results - last 24 hr 10/05/19 10/06/19 10/06/19 21:58 06:25 12:21 POC Glucometer 164 158 197 10/06/19 18:10 POC Glucometer 153 Active Medications Generic Name Dose Route Start Last Admin Trade Name Freq PRN Reason Stop Dose Admin Al Hydroxide/Mg Hydroxide 30 ml 10/04/19 19:00 10/06/19 06:35 Mylanta Oral Suspension - PO 30 ml Q6H PRN Administration DYSPEPSIA Amlodipine Besylate 10 mg 10/05/19 10:00 10/06/19 10:55 Norvasc - PO 10 mg DAILY ALCIDES Administration Calcium Carbonate 500 mg 10/05/19 10:00 02/09/20 10:55 Os-Natalio 500mg - PO 500 mg DAILY ALCIDES Administration Chlorthalidone 12.5 mg 10/05/19 10:00 10/06/19 10:55 Hygroton - PO 12.5 mg DAILY ALCIDES Administration Folic Acid 1 mg 10/05/19 10:00 10/06/19 10:55 Folic Acid - PO 1 mg DAILY ALCIDES Administration Gabapentin 300 mg 10/04/19 22:00 10/05/19 22:01 Neurontin - PO 300 mg HS ALCIDES Administration Heparin Sodium (Porcine) 5,000 unit 10/04/19 22:00 10/06/19 15:03 Heparin - SQ 5,000 unit TID ALCIDES Administration Sodium Chloride 1,000 mls @ 75 mls/hr 10/04/19 18:30 10/05/19 18:09 Normal Saline - IV 75 mls/hr ASDIR ALCIDES Administration Insulin Aspart 1 vial 10/04/19 22:00 10/06/19 18:13 Novolog Vial Sliding Scale - SQ 2 unit ACHS ALCIDES Administration Protocol Levothyroxine Sodium 125 mcg 10/05/19 07:00 10/06/19 06:24 Synthroid - PO 125 mcg DAILY@0700 ALCIDES Administration Lisinopril 40 mg 10/05/19 10:00 10/06/19 10:55 Prinivil PO 40 mg DAILY ALCIDES Administration Metoprolol Succinate 100 mg 10/05/19 10:00 10/06/19 10:55 Toprol Xl - PO 100 mg DAILY ALCIDES Administration Ondansetron HCl 4 mg 10/04/19 18:34 10/06/19 14:58 Zofran Injection IVPUSH 4 mg Q6H PRN Administration NAUSEA AND/OR VOMITING Rosuvastatin Calcium 40 mg 10/05/19 22:00 10/05/19 22:01 Crestor - PO 40 mg HS ALCIDES Administration Trimethobenzamide HCl 200 mg 10/04/19 18:34 Tigan Injection - IM Q8H PRN NAUSEA ASSESSMENT/PLAN: CT abd/pelvis shows possible concentric wall thickening possibly consistent with enteritis; nonspecific wall thickening of the gastric fundus is seen posteriorly which should be correlated with endoscopy as per radiology ASSESSMENT/PLAN: Patient presents with likely enteritis found to have nonspecific gastric wall thickening around the fundus. On full liquid; consulting GI to determine if there is need for inpatient endoscopy vs. outpatient. Spoke with them today and informed that she will have procedure done tomorrow. NPO for EGD tomorrow. IV PPI for gastritis. Problem list: -Enteritis; changing to IV protonix with sucralfate, full liquid diet and consult GI -Intractable vomiting -Hx HLD -Hx HTN -Hx Hypothyroidism; high TSH FT4 wnl, can FU OP Full code Visit type - Emergency Visit Emergency Visit: Yes ED Registration Date: 10/04/19 Care time: The patient presented to the Emergency Department on the above date and was hospitalized for further evaluation of their emergent condition. - New Patient This patient is new to me today: No - Critical Care Critical Care patient: No
[2019-10-06] MEDS: GABAPENTIN 300 MG CAPSULE PO SCH (21:44)
[2019-10-06] MEDS: ROSUVASTATIN CA 20 MG TABLET (FP) PO SCH (21:45)
[2019-10-06] MEDS: SODIUM CHLORIDE 1,000 ML IV SCH (21:46)
[2019-10-07] MEDS: HEPARIN NA (PORCINE) 5,000 UNITS/ML 1ML VIAL SQ SCH ×2 (06:49→13:41)
[2019-10-07] MEDS: LEVOTHYROXINE NA 125 MCG TABLET (FP) PO SCH (06:49)
[2019-10-07] MEDS: SODIUM CHLORIDE 1,000 ML IV SCH (06:50)
[2019-10-07] MEDS: INSULIN SLIDING SCALE (NOVOLOG) 1 VIAL SQ SCH ×2 (07:03→15:24)
[2019-10-07] MEDS: FOLIC ACID 1 MG TABLET (FP) PO SCH (10:09)
[2019-10-07] MEDS ORDERED: PT OWN MED DRAWER 7, Y5N ONE (10:09)
[2019-10-07] MEDS: LISINOPRIL 20 MG TABLET (FP) PO SCH (10:09)
[2019-10-07] MEDS: CHLORTHALIDONE 25 MG TABLET PO SCH (10:10)
[2019-10-07] MEDS: CALCIUM (OYSTER SHELL) 500 MG TABLET (FP) PO SCH (10:10)
[2019-10-07] MEDS: amLODIPine BESYLATE 10 MG TABLET (FP) PO SCH (10:10)
[2019-10-07 11:44] VITALS: TEMP 98.2
[2019-10-07] MEDS ORDERED: INSULIN (NOVOLOG) ASPART 100 UNITS/ML 10ML VIAL ONE ×2 (13:32→15:21)
--- NOTE | 2019-10-07 13:32 | PN ---
Teaching Attending Note Name of Resident: Nikita Melo ATTENDING PHYSICIAN STATEMENT I saw and evaluated the patient. I reviewed the resident's note and discussed the case with the resident. I agree with the resident's findings and plan as documented. Gastritis on EGD; continue on pantoprazole. Was able to tolerate PO. Needs to followup with GI and PCP for biopsy. NAD AAO Resting in bed NT ND +BS CN2-12 wnl, no fnd Normal mood, appropriate behavior Patient presents with likely enteritis found to have nonspecific gastric wall thickening around the fundus. On full liquid; consulting GI to determine if there is need for inpatient endoscopy vs. outpatient. Spoke with them today and informed that she will have procedure done tomorrow. NPO for EGD tomorrow. IV PPI for gastritis. Problem list: -Enteritis; changing to IV protonix with sucralfate, full liquid diet and consult GI -Intractable vomiting -Hx HLD -Hx HTN -Hx Hypothyroidism; high TSH FT4 wnl, can FU OP Full code
[2019-10-07 14:33] VITALS: BP 137/60; PULSE 78
[2019-10-07] MEDS ORDERED: SIMETHICONE 80 MG TAB.CHEW (FP) PO PRN (15:21)
[2019-10-07] MEDS ORDERED: SIMETHICONE 80 MG TAB.CHEW (FP) PO SCH (15:30)
--- NOTE | 2019-10-07 16:01 | DS ---
Physical Exam: SUBJECTIVE: Patient seen and examined at bedside. No acute complaints. OBJECTIVE: Vital Signs Period Temp Pulse Resp BP Sys/Traylor Pulse Ox Last 24 Hr 98 F-98.6 F 63-88 12-20 73-152/45-77 96-100 PHYSICAL EXAM GENERAL: The patient is awake, alert, and fully oriented, in no acute distress. NECK: supple. LUNGS: Breath sounds equal, clear to auscultation bilaterally, no wheezes, no crackles, no accessory muscle use. HEART: Regular rate and rhythm, S1, S2 without murmur, rub or gallop. ABDOMEN: Soft, nontender, nondistended, normoactive bowel sounds, no guarding, no rebound, no hepatosplenomegaly, no masses. EXTREMITIES: 2+ pulses, warm, well-perfused, no edema. LABS Laboratory Results - last 24 hr 10/06/19 10/06/19 10/07/19 18:10 21:41 07:01 POC Glucometer 153 215 173 10/07/19 13:21 POC Glucometer 176 HOSPITAL COURSE: Date of Admission:10/04/19 This patient was admitted for intractable vomiting. CT abd pelvis showed a ? enteritis. She was given zofran and tigan for nausea and hydration. She underwent EGD with Dr. Hoyt who diagnosed her with moderate gastropathy in the gastric body. She was biopsied and expected to follow up with GI upon results of the bx. She was told to start taking protonix 40 daily and 80QID simethicone per GI recs. She was recommended to avoid certain foods that increase acid production or cause LES relaxation. She was told to f/u with her PCP in 3-5 days. Date of Discharge: 10/07/19 Minutes to complete discharge: 30 Discharge Summary Problems reviewed: Yes Reason For Visit: INTRACTABLE VOMITING WITH NAUSEA Condition: Good - Instructions Diet, Activity, Other Instructions: You were admitted for vomiting and inflammation in your stomach. While you were here we treated you with hydration and had a stomach doctor (Dr. Huffman ) see you who performed an endoscopy (camera device used to look at your stomach ) which showed inflammation in the stomach. You should take an acid lowering medication like: Pantoprazole 40mg once daily by mouth. You should avoid the foods that cause increased acid production like coffee, alcohol, spicy food. Simethicone 80 mg by mouth 4 times daily. You should follow up with your primary care doctor in 1 week. You should follow up with your GI doctor in 1 week. You should continue your home medications as prescribed. You should return to the emergency room if you experience any worsening of your current symptoms or: chest pain, shortness of breath, abdominal pain, bowel/ bladder complaints. Referrals: PCP,Dr. Ricketts [Other] (Please followup with your PCP within 3-5 days of discharge. Thanks!) Sola Huffman MD [Staff Physician] - 1 Week Disposition: HOME - Home Medications Comprehensive Discharge Medication List: Ambulatory Orders Amlodipine Besylate 10 mg PO DAILY 10/04/19 Calcium Carbonate [Oysco-500] 500 mg PO DAILY 10/04/19 Chlorthalidone 12.5 mg PO DAILY 10/04/19 Empagliflozin [Jardiance] 10 mg PO DAILY 10/04/19 Ergocalciferol (Vitamin D2) [Vitamin D2] 50,000 unit PO DAILY 10/04/19 Folic Acid 1 mg PO DAILY 10/04/19 Gabapentin [Neurontin] 300 mg PO HS 10/04/19 Insulin NPH Hum/Reg Insulin Hm [Novolin 70-30 Flexpen] 40 unit SQ ACDIN Insulin NPH Hum/Reg Insulin Hm [Novolin 70-30 Flexpen] 50 unit SQ ACBK 10/04/19 Levothyroxine [Synthroid -] 125 mcg PO DAILY 10/04/19 Liraglutide [Victoza -] 1.8 mg SQ DAILY 10/04/19 Lisinopril [Prinivil -] 40 mg PO DAILY 10/04/19 Metformin HCl [Glucophage] 1,000 mg PO BID 10/04/19 Metoprolol Succinate 100 mg PO DAILY 10/04/19 Pioglitazone HCl [Actos] 30 mg PO DAILY 10/04/19 Rosuvastatin [Crestor -] 40 mg PO DAILY 10/04/19 Pantoprazole Sodium [Protonix] 40 mg PO DAILY #30 tablet. 10/07/19 Simethicone [Mylicon -] 80 mg PO QID PRN #60 tab.chew 10/07/19 This patient is new to me today: Yes Date on this admission: 10/07/19 Emergency Visit: No Critical Care patient: No - Discharge Referral Referred to [facility] Med [facility] No ATTENDING PHYSICIAN STATEMENT I saw and evaluated the patient. I reviewed the resident's note and discussed the case with the resident. I agree with the resident's findings and plan as documented. SUBJECTIVE: OBJECTIVE: ASSESSMENT AND PLAN:
--- NOTE | 2019-10-09 18:27 | PATH ---
Surgical Pathology Report Patient Name: DIANA GRIER Med. Rec. #: [id number] /Age/Gender: 1960 (Age: 59) / F Account: [id number] Location: [facility] MED/SURG Taken: 10/07/2019 Received: 10/07/2019 Reported: 10/09/2019 Physicians: Rohit Harrington MD Specimen(s) Received STOMACH Clinical History Abdominal pain Postoperative diagnosis: Gastropathy Final Diagnosis STOMACH, BIOPSY: GASTRIC BODY MUCOSA WITH MODERATE CHRONIC ACTIVE GASTRITIS. IMMUNOHISTOCHEMICAL STAIN FOR H. PYLORI IS POSITIVE (MANY). Immunohistochemical stain performed at [place], [place] ([id number]) and interpreted at [facility]: H. Pylori. Positive and negative controls (internal if applicable) show appropriate results. Electronically Signed Christal Cantrell M.D. Gross Description Received in formalin, labeled "biopsy stomach" are 4 myers, irregular portions of soft tissue ranging from 0.2-0.3 cm. in greatest dimension. The specimens are submitted in toto in one cassette. /10/07/[address] [facility]10/07/2019
== END 2019-10-07 17:43 | disposition home or self-care (01) | DRG 392 ==
LOC: SUPCPDRO 08:37 → JER 08:37 → JERBED 18:18 → J8W 21:01
PROVIDERS: ADMIT Internal Medicine; ATTEND Internal Medicine
PROC: 0DB68ZX Excision of Stomach, Via Natural or Artificial Opening Endoscopic, Diagnostic (ICD-10-PCS; principal; 2019-10-07 10:30)
DX: K31.9 Disease of stomach and duodenum, unspecified (principal); E87.1 Hypo-osmolality and hyponatremia; E87.2 Acidosis; K52.9 Noninfective gastroenteritis and colitis, unspecified; E78.5 Hyperlipidemia, unspecified; I10 Essential (primary) hypertension; E03.9 Hypothyroidism, unspecified; E11.65 Type 2 diabetes mellitus with hyperglycemia; B96.81 Helicobacter pylori [H. pylori] as the cause of diseases classified elsewhere; K29.50 Unspecified chronic gastritis without bleeding; E86.0 Dehydration; R10.13 Epigastric pain; Z79.4 Long term (current) use of insulin
CPT/HCPCS: 36415; 74177-TC; 80053; 80307; 81003; 82550; 82553; 82962; 83605; 83690; 83735; 84100; 84439; 84443; 84484; 85025; 85610; 87040; 87086; 87186; 87804; 88305-TC; 93005; 93010; 99284-25; J1644; J7030; Q9967

== ENCOUNTER 2021-09-28 09:38 | Inpatient (IN) | payer BC ==
[2021-09-28] MEDS ORDERED: PIPERACILLIN/TAZOB 3.375 GM 3.375 GM in DEXTROSE 5%-WATER - 50 ML IVPB ONE (11:26)
[2021-09-28] MEDS ORDERED: VANCOMYCIN 1 GM in D5W (PRE-DOCKED) 1,000 MG/250 ML IVPB ONE (11:28)
[2021-09-28] MEDS ORDERED: VANCOMYCIN 1 GRAM (PRE-DOCKED) 1,000 MG/250 ML BAG IVPB ONE (11:33)
[2021-09-28] MEDS ORDERED: PIPERACILLIN/TAZOB 3.375 GM 3.375 GM/50 ML BAG IVPB ONE (11:33)
[2021-09-28 12:26] LABS: BASO % 0.8 % (0-2.0); EOS % 2.2 % (0-4.5); HEMATOCRIT 40.1 % (32.4-45.2); HEMOGLOBIN 13.1 GM/dL (10.7-15.3); LYMPH % 21.2 % (8-40); MCH 27.3 pg (25.7-33.7); MCHC 32.7 g/dl (32.0-36.0); MEAN CELL VOLUME 83.6 fl (80-96); MEAN PLT VOLUME 8.5 fl (7.5-11.1); MONO % 6.1 % (3.8-10.2); NEUT % 69.7 % (42.8-82.8); PLATELET COUNT 294 10^3/uL (134-434); RDW 16.5 % (11.6-15.6); WHITE BLOOD COUNT 7.7 K/mm3 (4.0-10.0)
[2021-09-28 12:32] LABS: INR 1.01 (0.83-1.09); PROTHROMBIN TIME (PATIENT) 11.6 SEC (9.7-13.0)
[2021-09-28 12:35] LABS: ACTIVATED PTT 29.9 SECONDS (25.2-36.5)
[2021-09-28 12:42] LABS: CHLORIDE 104 mmol/L (98-107); SODIUM 136 mmol/L (136-145)
[2021-09-28 12:44] LABS: BLOOD UREA NITROGEN 15.1 mg/dL (7-18); CALCIUM 8.8 mg/dL (8.5-10.1)
[2021-09-28 12:45] LABS: ALBUMIN 3.8 g/dl (3.4-5.0); CO2 29 mmol/L (21-32); GLUCOSE,RANDOM 155 mg/dL (74-106)
[2021-09-28 12:48] LABS: CREATININE 0.8 mg/dL (0.55-1.3); SGOT/AST 70 U/L (15-37); SGPT/ALT 28 U/L (13-61)
[2021-09-28 12:49] LABS: BILIRUBIN,TOTAL 0.5 mg/dL (0.2-1); TOT PROT 7.9 g/dl (6.4-8.2)
[2021-09-28 12:51] LABS: ALK PHOS 64 U/L (45-117)
[2021-09-28 13:05] LABS: ERYTHROCYTE SEDIMENTATION RATE 20 mm/hr (0-30)
[2021-09-28 13:46] LABS: ANION GAP 4 MMOL/L (8-16)
[2021-09-28 15:29] LABS: CALCIUM 8.7 mg/dL (8.5-10.1)
[2021-09-28 15:30] LABS: BLOOD UREA NITROGEN 14.7 mg/dL (7-18)
[2021-09-28 15:33] LABS: CREATININE 0.9 mg/dL (0.55-1.3)
[2021-09-28] MEDS ORDERED: VANCOMYCIN/WATER 1,250 MG/250 ML BAG IVPB SCH ×2 (16:00→16:45)
[2021-09-28] MEDS: INSULIN SLIDING SCALE (NOVOLOG) 1 VIAL SQ SCH ×2 (18:16→22:47)
[2021-09-28] MEDS ORDERED: INSULIN (LEVEMIR) 100 UNITS/ML UNITS SQ SCH (22:00)
[2021-09-28] MEDS: VANCOMYCIN/WATER 1,250 MG/250 ML BAG IVPB SCH (23:02)
[2021-09-29 02:42] VITALS: BMI 29.1
[2021-09-29] MEDS: INSULIN SLIDING SCALE (NOVOLOG) 1 VIAL SQ SCH ×3 (06:59→17:44)
[2021-09-29 07:51] LABS: BASO % 0.9 % (0-2.0); EOS % 2.9 % (0-4.5); HEMATOCRIT 39.8 % (32.4-45.2); HEMOGLOBIN 12.8 GM/dL (10.7-15.3); LYMPH % 29.1 % (8-40); MCH 27.2 pg (25.7-33.7); MCHC 32.2 g/dl (32.0-36.0); MEAN CELL VOLUME 84.6 fl (80-96); MEAN PLT VOLUME 8.1 fl (7.5-11.1); MONO % 6.4 % (3.8-10.2); NEUT % 60.7 % (42.8-82.8); PLATELET COUNT 269 10^3/uL (134-434); RDW 16.5 % (11.6-15.6); WHITE BLOOD COUNT 6.6 K/mm3 (4.0-10.0)
[2021-09-29 08:44] VITALS: TEMP 98.1
[2021-09-29 08:50] LABS: MAGNESIUM 2.1 mg/dL (1.8-2.4)
[2021-09-29 08:54] LABS: PHOSPHOROUS 4.6 mg/dL (2.5-4.9)
[2021-09-29] MEDS ORDERED: PIOGLITAZONE HCL 30 MG TABLET PO SCH ×3 (10:00→11:00)
[2021-09-29] MEDS ORDERED: amLODIPine BESYLATE 10 MG TABLET (FP) PO SCH (10:00)
[2021-09-29] MEDS: VANCOMYCIN/WATER 1,250 MG/250 ML BAG IVPB SCH (12:07)
[2021-09-29] MEDS ORDERED: CEFTRIAXONE 2 GM in DEXTROSE 5%-WATER 100 ML IVPB SCH (13:00)
[2021-09-29] MEDS ORDERED: DEXTROSE 5%-WATER 100 ML IVPB ONE (13:23)
[2021-09-29 14:27] VITALS: BP 117/52; PULSE 73
== END 2021-09-29 19:34 | disposition home or self-care (01) | DRG 638 ==
LOC: JER 09:38 → JERBED 11:22 → J6S 19:21
PROVIDERS: ADMIT Internal Medicine; ATTEND Internal Medicine
PROC: 02HV33Z Insertion of Infusion Device into Superior Vena Cava, Percutaneous Approach (ICD-10-PCS; principal; 2021-09-29)
PROC: B548ZZA Ultrasonography of Superior Vena Cava, Guidance (ICD-10-PCS; 2021-09-29)
DX: E11.69 Type 2 diabetes mellitus with other specified complication (principal); M86.8X7 Other osteomyelitis, ankle and foot; L03.116 Cellulitis of left lower limb; E11.65 Type 2 diabetes mellitus with hyperglycemia; I10 Essential (primary) hypertension; E78.5 Hyperlipidemia, unspecified; E03.9 Hypothyroidism, unspecified; Z79.84 Long term (current) use of oral hypoglycemic drugs
CPT/HCPCS: 36415; 36569; 80048; 80053; 82962; 83036; 83735; 84100; 85025; 85610; 85651; 85730; 86140; 86850; 86900; 86901; 87040; 93005; 93010; 99285-25; C9803; U0003; U0005

== ENCOUNTER 2021-09-30 11:26 | Day surgery (SDC) | payer BC ==
[~2021-09-30 11:26] MED LIST: CEFTRIAXONE 2 GM in DEXTROSE 5%-WATER 100 ML IVPB ONE
[2021-09-30] MEDS ORDERED: DEXTROSE 5%-WATER 100 ML IVPB ONE (12:09)
[2021-09-30 12:36] VITALS: TEMP 98.2
[2021-09-30 13:35] VITALS: BP 120/56; PULSE 66
== END 2021-09-30 13:37 | disposition home or self-care (01) ==
LOC: JINFUSION 11:26 → J7W 11:37 → JINFUSION 13:37
PROVIDERS: ATTEND Internal Medicine Infectious Disease
DX: E11.69 Type 2 diabetes mellitus with other specified complication (principal); M86.8X7 Other osteomyelitis, ankle and foot; Z79.84 Long term (current) use of oral hypoglycemic drugs
CPT/HCPCS: 96365

== ENCOUNTER 2021-10-01 10:58 | Day surgery (SDC) | payer BC ==
[2021-10-01] MEDS ORDERED: DEXTROSE 5%-WATER 100 ML IVPB ONE (11:04)
[2021-10-01 11:14] VITALS: BP 125/62; PULSE 74; TEMP 98.3
== END 2021-10-01 11:55 | disposition home or self-care (01) ==
LOC: JINFUSION 10:58 → J7W 10:58 → JINFUSION 11:55
PROVIDERS: ATTEND Internal Medicine Infectious Disease
DX: E11.69 Type 2 diabetes mellitus with other specified complication (principal); M86.8X7 Other osteomyelitis, ankle and foot; L03.116 Cellulitis of left lower limb; Z79.84 Long term (current) use of oral hypoglycemic drugs
CPT/HCPCS: 96365

== ENCOUNTER 2021-10-02 11:26 | Day surgery (SDC) | payer BC ==
[2021-10-02] MEDS ORDERED: DEXTROSE 5%-WATER 100 ML IVPB ONE (11:57)
[2021-10-02] MEDS ORDERED: CEFTRIAXONE 2 GM in DEXTROSE 5%-WATER 100 ML IVPB ONE (12:00)
[2021-10-02 12:11] VITALS: BP 114/60; PULSE 80
== END 2021-10-02 12:59 | disposition home or self-care (01) ==
LOC: JINFUSION 11:26 → J7W 11:27 → JINFUSION 12:59
PROVIDERS: ATTEND Internal Medicine Infectious Disease
DX: E11.69 Type 2 diabetes mellitus with other specified complication (principal); M86.8X7 Other osteomyelitis, ankle and foot; L03.116 Cellulitis of left lower limb; Z79.84 Long term (current) use of oral hypoglycemic drugs
CPT/HCPCS: 96365

== ENCOUNTER 2021-10-03 11:13 | Day surgery (SDC) | payer BC ==
[2021-10-03] MEDS ORDERED: DEXTROSE 5%-WATER 100 ML IVPB ONE (11:28)
[2021-10-03] MEDS ORDERED: CEFTRIAXONE 2 GM in DEXTROSE 5%-WATER 100 ML IVPB ONE (11:30)
[2021-10-03 12:15] VITALS: BP 110/59; PULSE 78
== END 2021-10-03 12:22 | disposition home or self-care (01) ==
LOC: J7W 11:13 → JINFUSION 11:13
PROVIDERS: ATTEND Internal Medicine Infectious Disease
DX: E11.69 Type 2 diabetes mellitus with other specified complication (principal); M86.8X7 Other osteomyelitis, ankle and foot; L03.116 Cellulitis of left lower limb; Z79.84 Long term (current) use of oral hypoglycemic drugs
CPT/HCPCS: 96365

== ENCOUNTER 2021-10-04 11:33 | Day surgery (SDC) | payer BC ==
[2021-10-04] MEDS ORDERED: DEXTROSE 5%-WATER 100 ML IVPB ONE (11:45)
[2021-10-04 11:58] VITALS: BP 106/58; PULSE 74; TEMP 98.4
== END 2021-10-04 12:50 | disposition home or self-care (01) ==
LOC: JINFUSION 11:33 → J7W 11:34 → JINFUSION 12:50
PROVIDERS: ATTEND Internal Medicine Infectious Disease
DX: E11.69 Type 2 diabetes mellitus with other specified complication (principal); M86.8X7 Other osteomyelitis, ankle and foot; L03.116 Cellulitis of left lower limb; Z79.84 Long term (current) use of oral hypoglycemic drugs
CPT/HCPCS: 96365

== ENCOUNTER 2021-10-05 11:19 | Day surgery (SDC) | payer BC ==
[2021-10-05] MEDS ORDERED: DEXTROSE 5%-WATER 100 ML IVPB ONE (11:32)
[2021-10-05 11:53] VITALS: PULSE 68; TEMP 97.7
[2021-10-05 12:23] VITALS: BP 116/72
== END 2021-10-05 12:25 | disposition home or self-care (01) ==
LOC: JINFUSION 11:19 → J7W 11:19 → JINFUSION 12:25
PROVIDERS: ATTEND Internal Medicine Infectious Disease
DX: E11.69 Type 2 diabetes mellitus with other specified complication (principal); M86.8X7 Other osteomyelitis, ankle and foot; L03.116 Cellulitis of left lower limb; Z79.84 Long term (current) use of oral hypoglycemic drugs
CPT/HCPCS: 96365

== ENCOUNTER 2021-10-06 10:23 | Day surgery (SDC) | payer BC ==
[2021-10-06] MEDS ORDERED: DEXTROSE 5%-WATER 100 ML IVPB ONE (10:27)
[2021-10-06 16:57] VITALS: BP 98/59; PULSE 76; TEMP 98
== END 2021-10-06 11:15 | disposition home or self-care (01) ==
LOC: JINFUSION 10:23 → J7W 10:24 → JINFUSION 11:15
PROVIDERS: ATTEND Internal Medicine Infectious Disease
DX: E11.69 Type 2 diabetes mellitus with other specified complication (principal); M86.8X7 Other osteomyelitis, ankle and foot; L03.116 Cellulitis of left lower limb; Z79.84 Long term (current) use of oral hypoglycemic drugs
CPT/HCPCS: 96365

== ENCOUNTER 2021-10-07 11:03 | Day surgery (SDC) | payer BC ==
[2021-10-07] MEDS ORDERED: DEXTROSE 5%-WATER 100 ML IVPB ONE (11:20)
[2021-10-07 14:00] VITALS: BP 125/90; PULSE 86; TEMP 98
== END 2021-10-07 13:59 | disposition home or self-care (01) ==
LOC: J7W 11:03 → JINFUSION 11:03
PROVIDERS: ATTEND Internal Medicine Infectious Disease
DX: E11.69 Type 2 diabetes mellitus with other specified complication (principal); M86.8X7 Other osteomyelitis, ankle and foot; L03.116 Cellulitis of left lower limb; Z79.84 Long term (current) use of oral hypoglycemic drugs
CPT/HCPCS: 96365

== ENCOUNTER 2021-10-08 11:04 | Day surgery (SDC) | payer BC ==
[2021-10-08] MEDS ORDERED: DEXTROSE 5%-WATER 100 ML IVPB ONE (11:49)
[2021-10-08] MEDS ORDERED: CEFTRIAXONE 2 GM in DEXTROSE 5%-WATER 100 ML IVPB ONE (12:00)
[2021-10-08 16:01] VITALS: BP 106/58; PULSE 71; TEMP 98.8
== END 2021-10-08 15:22 | disposition home or self-care (01) ==
LOC: JINFUSION 11:04 → J7W 11:04 → JINFUSION 15:22
PROVIDERS: ATTEND Internal Medicine Infectious Disease
DX: E11.69 Type 2 diabetes mellitus with other specified complication (principal); M86.8X7 Other osteomyelitis, ankle and foot; L03.116 Cellulitis of left lower limb; Z79.84 Long term (current) use of oral hypoglycemic drugs
CPT/HCPCS: 96365

== ENCOUNTER 2021-10-09 11:10 | Day surgery (SDC) | payer BC ==
[2021-10-09] MEDS ORDERED: CEFTRIAXONE 2 GM in DEXTROSE 5%-WATER 100 ML IVPB ONE (11:30)
[2021-10-09] MEDS ORDERED: DEXTROSE 5%-WATER 100 ML IVPB ONE (12:00)
[2021-10-09 12:14] VITALS: TEMP 98.1
[2021-10-09 12:53] VITALS: BP 122/68; PULSE 74
== END 2021-10-09 12:54 | disposition home or self-care (01) ==
LOC: JINFUSION 11:10 → J7W 11:11 → JINFUSION 12:54
PROVIDERS: ATTEND Internal Medicine Infectious Disease
DX: L03.116 Cellulitis of left lower limb (principal); Z79.84 Long term (current) use of oral hypoglycemic drugs
CPT/HCPCS: 96365

== ENCOUNTER 2021-10-10 11:20 | Day surgery (SDC) | payer BC ==
[2021-10-10] MEDS ORDERED: DEXTROSE 5%-WATER 100 ML IVPB ONE (11:36)
[2021-10-10] MEDS ORDERED: CEFTRIAXONE 2 GM in DEXTROSE 5%-WATER 100 ML IVPB ONE (11:45)
[2021-10-10 12:13] VITALS: BP 126/63; PULSE 91; TEMP 98
== END 2021-10-10 12:22 | disposition home or self-care (01) ==
LOC: JINFUSION 11:20 → J7W 11:20 → JINFUSION 12:22
PROVIDERS: ATTEND Internal Medicine Infectious Disease
DX: E11.69 Type 2 diabetes mellitus with other specified complication (principal); M86.8X7 Other osteomyelitis, ankle and foot; L03.116 Cellulitis of left lower limb; Z79.84 Long term (current) use of oral hypoglycemic drugs
CPT/HCPCS: 96365

== ENCOUNTER 2021-10-11 10:49 | Day surgery (SDC) | payer BC ==
[2021-10-11] MEDS ORDERED: DEXTROSE 5%-WATER 100 ML IVPB ONE (11:10)
[2021-10-11 11:24] VITALS: BP 95/51; TEMP 97.6
[2021-10-11 11:30] VITALS: PULSE 0
== END 2021-10-11 13:00 | disposition home or self-care (01) ==
LOC: J7W 10:49 → JINFUSION 10:49
PROVIDERS: ATTEND Internal Medicine Infectious Disease
DX: E11.69 Type 2 diabetes mellitus with other specified complication (principal); M86.8X7 Other osteomyelitis, ankle and foot; L03.116 Cellulitis of left lower limb; Z79.84 Long term (current) use of oral hypoglycemic drugs
CPT/HCPCS: 96365

== ENCOUNTER 2021-10-12 12:34 | Day surgery (SDC) | payer BC ==
[2021-10-12] MEDS ORDERED: DEXTROSE 5%-WATER 100 ML IVPB ONE (12:46)
[2021-10-12 14:39] VITALS: BP 118/70; PULSE 66; TEMP 98.2
== END 2021-10-12 14:40 | disposition home or self-care (01) ==
LOC: JINFUSION 12:34 → J7W 12:35 → JINFUSION 14:40
PROVIDERS: ATTEND Internal Medicine Infectious Disease
DX: E11.69 Type 2 diabetes mellitus with other specified complication (principal); M86.8X7 Other osteomyelitis, ankle and foot; L03.116 Cellulitis of left lower limb; Z79.84 Long term (current) use of oral hypoglycemic drugs
CPT/HCPCS: 96365

== ENCOUNTER 2021-10-13 11:20 | Day surgery (SDC) | payer BC ==
[2021-10-13] MEDS ORDERED: CEFTRIAXONE 2 GM in DEXTROSE 5%-WATER 100 ML IVPB ONE (11:30)
[2021-10-13] MEDS ORDERED: DEXTROSE 5%-WATER 100 ML IVPB ONE (11:30)
[2021-10-13 11:58] LABS: HEMATOCRIT 38.8 % (32.4-45.2); HEMOGLOBIN 12.5 GM/dL (10.7-15.3); MCH 27.3 pg (25.7-33.7); MCHC 32.3 g/dl (32.0-36.0); MEAN CELL VOLUME 84.4 fl (80-96); MEAN PLT VOLUME 7.8 fl (7.5-11.1); PLATELET COUNT 266 10^3/uL (134-434); RDW 16.2 % (11.6-15.6); WHITE BLOOD COUNT 5.3 K/mm3 (4.0-10.0)
[2021-10-13 13:13] LABS: CALCIUM 8.3 mg/dL (8.5-10.1); CREATININE 0.7 mg/dL (0.55-1.3)
[2021-10-13 14:07] VITALS: BP 116/71; PULSE 69; TEMP 98.3
== END 2021-10-13 13:30 | disposition home or self-care (01) ==
LOC: JINFUSION 11:20 → J7W 11:20 → JINFUSION 13:30
PROVIDERS: ATTEND Internal Medicine Infectious Disease
DX: E11.69 Type 2 diabetes mellitus with other specified complication (principal); M86.8X7 Other osteomyelitis, ankle and foot; L03.116 Cellulitis of left lower limb; Z79.84 Long term (current) use of oral hypoglycemic drugs
CPT/HCPCS: 36415; 80048; 85027; 96365

== ENCOUNTER 2021-10-14 11:29 | Day surgery (SDC) | payer BC ==
[2021-10-14] MEDS ORDERED: DEXTROSE 5%-WATER 100 ML IVPB ONE (11:38)
[2021-10-14 12:46] VITALS: BP 122/76; PULSE 74; TEMP 98
== END 2021-10-14 12:47 | disposition home or self-care (01) ==
LOC: JINFUSION 11:29 → J7W 11:30 → JINFUSION 12:47
PROVIDERS: ATTEND Internal Medicine Infectious Disease
DX: E11.69 Type 2 diabetes mellitus with other specified complication (principal); M86.8X7 Other osteomyelitis, ankle and foot; L03.116 Cellulitis of left lower limb; Z79.84 Long term (current) use of oral hypoglycemic drugs
CPT/HCPCS: 96365

== ENCOUNTER 2021-10-15 11:19 | Day surgery (SDC) | payer BC ==
[2021-10-15] MEDS ORDERED: DEXTROSE 5%-WATER 100 ML IVPB ONE (11:43)
[2021-10-15] MEDS ORDERED: CEFTRIAXONE 2 GM in DEXTROSE 5%-WATER 100 ML IVPB ONE (11:50)
[2021-10-15 12:58] VITALS: BP 143/76; PULSE 78; TEMP 99.2
== END 2021-10-15 12:35 | disposition home or self-care (01) ==
LOC: JINFUSION 11:19 → J7W 11:19 → JINFUSION 12:35
PROVIDERS: ATTEND Internal Medicine Infectious Disease
DX: E11.69 Type 2 diabetes mellitus with other specified complication (principal); M86.8X7 Other osteomyelitis, ankle and foot; L03.116 Cellulitis of left lower limb; Z79.84 Long term (current) use of oral hypoglycemic drugs
CPT/HCPCS: 96365

== ENCOUNTER 2021-10-16 11:15 | Day surgery (SDC) | payer BC ==
[2021-10-16] MEDS ORDERED: DEXTROSE 5%-WATER 100 ML IVPB ONE (11:59)
[2021-10-16] MEDS ORDERED: CEFTRIAXONE 2 GM in DEXTROSE 5%-WATER 100 ML IVPB ONE (12:00)
[2021-10-16 12:05] VITALS: BP 105/60; PULSE 69; TEMP 98.6
== END 2021-10-16 13:03 | disposition home or self-care (01) ==
LOC: JINFUSION 11:15 → J7W 11:16 → JINFUSION 13:03
PROVIDERS: ATTEND Internal Medicine Infectious Disease
DX: E11.69 Type 2 diabetes mellitus with other specified complication (principal); M86.8X7 Other osteomyelitis, ankle and foot; L03.116 Cellulitis of left lower limb; Z79.84 Long term (current) use of oral hypoglycemic drugs
CPT/HCPCS: 96365

== ENCOUNTER 2021-10-17 11:42 | Day surgery (SDC) | payer BC ==
[2021-10-17] MEDS ORDERED: DEXTROSE 5%-WATER 100 ML IVPB ONE (12:22)
[2021-10-17] MEDS ORDERED: CEFTRIAXONE 2 GM in DEXTROSE 5%-WATER 100 ML IVPB ONE (12:45)
[2021-10-17 13:54] VITALS: BP 126/87; PULSE 86
== END 2021-10-17 13:53 | disposition home or self-care (01) ==
LOC: JINFUSION 11:42 → J7W 11:43 → JINFUSION 13:53
PROVIDERS: ATTEND Internal Medicine Infectious Disease
DX: E11.69 Type 2 diabetes mellitus with other specified complication (principal); M86.8X7 Other osteomyelitis, ankle and foot; L03.116 Cellulitis of left lower limb; Z79.84 Long term (current) use of oral hypoglycemic drugs
CPT/HCPCS: 96365

== ENCOUNTER 2021-10-18 11:36 | Day surgery (SDC) | payer BC ==
[2021-10-18] MEDS ORDERED: DEXTROSE 5%-WATER 100 ML IVPB ONE (11:55)
[2021-10-18] MEDS ORDERED: CEFTRIAXONE 2 GM in DEXTROSE 5%-WATER 100 ML IVPB ONE (12:00)
[2021-10-18 18:38] VITALS: BP 122/73; PULSE 77; TEMP 98.3
== END 2021-10-18 12:45 | disposition home or self-care (01) ==
LOC: J7W 11:36 → JINFUSION 11:36
PROVIDERS: ATTEND Internal Medicine Infectious Disease
DX: E11.69 Type 2 diabetes mellitus with other specified complication (principal); M86.8X7 Other osteomyelitis, ankle and foot; L03.116 Cellulitis of left lower limb; Z79.84 Long term (current) use of oral hypoglycemic drugs
CPT/HCPCS: 96365

== ENCOUNTER 2021-10-19 11:24 | Day surgery (SDC) | payer BC ==
[2021-10-19 12:06] VITALS: TEMP 98.2
[2021-10-19 13:41] VITALS: BP 128/74; PULSE 74
== END 2021-10-19 13:40 | disposition home or self-care (01) ==
LOC: J7W 11:24 → JINFUSION 11:24
PROVIDERS: ATTEND Internal Medicine Infectious Disease
DX: E11.69 Type 2 diabetes mellitus with other specified complication (principal); M86.8X7 Other osteomyelitis, ankle and foot; L03.116 Cellulitis of left lower limb; Z79.84 Long term (current) use of oral hypoglycemic drugs
CPT/HCPCS: 96365

== ENCOUNTER 2021-10-20 10:26 | Day surgery (SDC) | payer BC ==
[2021-10-20] MEDS ORDERED: CEFTRIAXONE 2 GM in DEXTROSE 5%-WATER 100 ML IVPB ONE (10:30)
[2021-10-20] MEDS ORDERED: DEXTROSE 5%-WATER 100 ML IVPB ONE (10:34)
[2021-10-20 10:47] VITALS: BP 126/67; PULSE 75; TEMP 98.2
== END 2021-10-20 13:00 | disposition home or self-care (01) ==
LOC: J7W 10:26 → JINFUSION 10:26
PROVIDERS: ATTEND Internal Medicine Infectious Disease
DX: E11.69 Type 2 diabetes mellitus with other specified complication (principal); M86.8X7 Other osteomyelitis, ankle and foot; L03.116 Cellulitis of left lower limb; Z79.84 Long term (current) use of oral hypoglycemic drugs
CPT/HCPCS: 96365

== ENCOUNTER 2021-10-21 11:02 | Day surgery (SDC) | payer BC ==
[2021-10-21] MEDS ORDERED: DEXTROSE 5%-WATER 100 ML IVPB ONE (11:49)
[2021-10-21] MEDS ORDERED: CEFTRIAXONE 2 GM in DEXTROSE 5%-WATER 100 ML IVPB ONE (12:00)
[2021-10-21 12:10] VITALS: TEMP 98.5
[2021-10-21 12:45] VITALS: BP 132/88; PULSE 80
== END 2021-10-21 12:59 | disposition home or self-care (01) ==
LOC: JINFUSION 11:02 → J7W 11:03 → JINFUSION 12:59
PROVIDERS: ATTEND Internal Medicine Infectious Disease
DX: E11.69 Type 2 diabetes mellitus with other specified complication (principal); M86.8X7 Other osteomyelitis, ankle and foot; L03.116 Cellulitis of left lower limb; Z79.84 Long term (current) use of oral hypoglycemic drugs
CPT/HCPCS: 96365

== ENCOUNTER 2021-10-22 11:11 | Day surgery (SDC) | payer BC ==
[2021-10-22] MEDS ORDERED: CEFTRIAXONE 2 GM in DEXTROSE 5%-WATER 100 ML IVPB ONE (11:45)
[2021-10-22] MEDS ORDERED: DEXTROSE 5%-WATER 100 ML IVPB ONE (12:02)
[2021-10-22 13:00] VITALS: TEMP 98.3
[2021-10-22 13:07] VITALS: BP 122/65; PULSE 80
== END 2021-10-22 13:10 | disposition home or self-care (01) ==
LOC: JINFUSION 11:11 → J7W 11:12 → JINFUSION 13:10
PROVIDERS: ATTEND Internal Medicine Infectious Disease
DX: E11.69 Type 2 diabetes mellitus with other specified complication (principal); M86.8X7 Other osteomyelitis, ankle and foot; L03.116 Cellulitis of left lower limb; Z79.84 Long term (current) use of oral hypoglycemic drugs
CPT/HCPCS: 96365; 96366

== ENCOUNTER 2021-10-23 11:24 | Day surgery (SDC) | payer BC ==
[2021-10-23] MEDS ORDERED: CEFTRIAXONE 2 GM in DEXTROSE 5%-WATER 100 ML IVPB ONE (11:30)
[2021-10-23] MEDS ORDERED: DEXTROSE 5%-WATER 100 ML IVPB ONE (11:43)
[2021-10-23 12:02] VITALS: TEMP 97.6
[2021-10-23 13:13] VITALS: BP 125/66; PULSE 74
== END 2021-10-23 12:49 | disposition home or self-care (01) ==
LOC: JINFUSION 11:24 → J7W 11:25 → JINFUSION 12:49
PROVIDERS: ATTEND Internal Medicine Infectious Disease
DX: E11.69 Type 2 diabetes mellitus with other specified complication (principal); M86.8X7 Other osteomyelitis, ankle and foot; L03.116 Cellulitis of left lower limb; Z79.84 Long term (current) use of oral hypoglycemic drugs
CPT/HCPCS: 96365

== ENCOUNTER 2021-10-24 11:38 | Day surgery (SDC) | payer BC ==
[2021-10-24] MEDS ORDERED: CEFTRIAXONE 2 GM in DEXTROSE 5%-WATER 100 ML IVPB ONE (12:00)
[2021-10-24] MEDS ORDERED: DEXTROSE 5%-WATER 100 ML IVPB ONE (12:19)
== END 2021-10-24 16:24 | disposition home or self-care (01) ==
LOC: JINFUSION 11:38 → J7W 11:39 → JINFUSION 16:24
PROVIDERS: ATTEND Internal Medicine Infectious Disease
DX: E11.69 Type 2 diabetes mellitus with other specified complication (principal); M86.8X7 Other osteomyelitis, ankle and foot; L03.116 Cellulitis of left lower limb; Z79.84 Long term (current) use of oral hypoglycemic drugs
CPT/HCPCS: 96365

== ENCOUNTER 2021-10-25 11:03 | Day surgery (SDC) | payer BC ==
[2021-10-25] MEDS ORDERED: CEFTRIAXONE 2 GM in DEXTROSE 5%-WATER 100 ML IVPB ONE (11:15)
[2021-10-25] MEDS ORDERED: DEXTROSE 5%-WATER 100 ML IVPB ONE (11:29)
[2021-10-25 19:05] VITALS: BP 140/72; PULSE 82; TEMP 98
== END 2021-10-25 12:40 | disposition home or self-care (01) ==
LOC: JINFUSION 11:03 → J7W 11:04 → JINFUSION 12:40
PROVIDERS: ATTEND Internal Medicine Infectious Disease
DX: E11.69 Type 2 diabetes mellitus with other specified complication (principal); M86.8X7 Other osteomyelitis, ankle and foot; L03.116 Cellulitis of left lower limb; Z79.84 Long term (current) use of oral hypoglycemic drugs
CPT/HCPCS: 96365

== ENCOUNTER 2021-10-26 11:49 | Day surgery (SDC) | payer BC ==
[2021-10-26] MEDS ORDERED: DEXTROSE 5%-WATER 100 ML IVPB ONE ×2 (11:55→12:36)
[2021-10-26] MEDS ORDERED: CEFTRIAXONE 2 GM in DEXTROSE 5%-WATER 100 ML IVPB ONE ×2 (12:30→12:45)
[2021-10-26 12:46] VITALS: TEMP 98.4
[2021-10-26 12:55] VITALS: BP 118/67; PULSE 86
== END 2021-10-26 13:00 | disposition home or self-care (01) ==
LOC: JINFUSION 11:49 → J7W 11:50 → JINFUSION 13:00
PROVIDERS: ATTEND Internal Medicine Infectious Disease
DX: E11.69 Type 2 diabetes mellitus with other specified complication (principal); M86.8X7 Other osteomyelitis, ankle and foot; L03.116 Cellulitis of left lower limb; Z79.84 Long term (current) use of oral hypoglycemic drugs
CPT/HCPCS: 96365

== ENCOUNTER 2021-10-27 11:12 | Day surgery (SDC) | payer BC ==
[2021-10-27] MEDS ORDERED: DEXTROSE 5%-WATER 100 ML IVPB ONE (11:51)
[2021-10-27] MEDS ORDERED: CEFTRIAXONE 2 GM in DEXTROSE 5%-WATER 100 ML IVPB ONE (12:15)
[2021-10-27 12:47] VITALS: TEMP 98
[2021-10-27 13:25] VITALS: BP 110/56; PULSE 82
== END 2021-10-27 14:00 | disposition home or self-care (01) ==
LOC: JINFUSION 11:12 → J7W 11:13 → JINFUSION 14:00
PROVIDERS: ATTEND Internal Medicine Infectious Disease
DX: E11.69 Type 2 diabetes mellitus with other specified complication (principal); M86.8X7 Other osteomyelitis, ankle and foot; L03.116 Cellulitis of left lower limb; Z79.4 Long term (current) use of insulin
CPT/HCPCS: 96365

== ENCOUNTER 2021-10-28 11:16 | Day surgery (SDC) | payer BC ==
[2021-10-28] MEDS ORDERED: DEXTROSE 5%-WATER 100 ML IVPB ONE (11:28)
[2021-10-28] MEDS ORDERED: CEFTRIAXONE 2 GM in DEXTROSE 5%-WATER 100 ML IVPB ONE (11:45)
[2021-10-28 11:52] VITALS: TEMP 98.2
[2021-10-28 13:15] VITALS: BP 122/68; PULSE 78
== END 2021-10-28 12:25 | disposition home or self-care (01) ==
LOC: JINFUSION 11:16 → J7W 11:17 → JINFUSION 12:25
PROVIDERS: ATTEND Internal Medicine Infectious Disease
DX: E11.69 Type 2 diabetes mellitus with other specified complication (principal); M86.8X7 Other osteomyelitis, ankle and foot; L03.116 Cellulitis of left lower limb; Z79.4 Long term (current) use of insulin
CPT/HCPCS: 96365

== ENCOUNTER 2021-10-29 10:47 | Day surgery (SDC) | payer BC ==
[2021-10-29] MEDS ORDERED: CEFTRIAXONE 2 GM in DEXTROSE 5%-WATER 100 ML IVPB ONE (11:00)
[2021-10-29] MEDS ORDERED: DEXTROSE 5%-WATER 100 ML IVPB ONE (11:08)
[2021-10-29 14:51] VITALS: BP 118/63; PULSE 80; TEMP 98.2
== END 2021-10-29 12:30 | disposition home or self-care (01) ==
LOC: J7W 10:47 → JINFUSION 10:47
PROVIDERS: ATTEND Internal Medicine Infectious Disease
DX: E11.69 Type 2 diabetes mellitus with other specified complication (principal); M86.8X7 Other osteomyelitis, ankle and foot; L03.116 Cellulitis of left lower limb; Z79.4 Long term (current) use of insulin
CPT/HCPCS: 96365

== ENCOUNTER 2021-10-30 11:15 | Day surgery (SDC) | payer BC ==
[2021-10-30] MEDS ORDERED: DEXTROSE 5%-WATER 100 ML IVPB ONE (11:44)
[2021-10-30] MEDS ORDERED: CEFTRIAXONE 2 GM in DEXTROSE 5%-WATER 100 ML IVPB ONE (11:45)
[2021-10-30 14:58] VITALS: BP 120/73; PULSE 74; TEMP 98
== END 2021-10-30 14:58 | disposition home or self-care (01) ==
LOC: JINFUSION 11:15 → J7W 11:16 → JINFUSION 14:58
PROVIDERS: ATTEND Internal Medicine Infectious Disease
DX: E11.9 Type 2 diabetes mellitus without complications (principal); M86.8X7 Other osteomyelitis, ankle and foot; L03.116 Cellulitis of left lower limb; Z79.4 Long term (current) use of insulin
CPT/HCPCS: 96365

== ENCOUNTER 2021-10-31 10:49 | Day surgery (SDC) | payer BC ==
[2021-10-31] MEDS ORDERED: CEFTRIAXONE 2 GM in DEXTROSE 5%-WATER 100 ML IVPB ONE (11:15)
[2021-10-31] MEDS ORDERED: DEXTROSE 5%-WATER 100 ML IVPB ONE (11:18)
== END 2021-10-31 12:33 | disposition home or self-care (01) ==
LOC: JINFUSION 10:49 → J7W 10:49 → JINFUSION 12:33
PROVIDERS: ATTEND Internal Medicine Infectious Disease
DX: E11.9 Type 2 diabetes mellitus without complications (principal); M86.8X7 Other osteomyelitis, ankle and foot; L03.116 Cellulitis of left lower limb; Z79.4 Long term (current) use of insulin
CPT/HCPCS: 96365

== ENCOUNTER 2021-11-01 11:48 | Day surgery (SDC) | payer BC ==
[2021-11-01] MEDS ORDERED: DEXTROSE 5%-WATER 100 ML IVPB ONE (12:15)
[2021-11-01 12:32] VITALS: TEMP 98.1
[2021-11-01 15:38] VITALS: BP 135/59; PULSE 78
== END 2021-11-01 15:46 | disposition home or self-care (01) ==
LOC: J7W 11:48 → JINFUSION 11:48
PROVIDERS: ATTEND Internal Medicine Infectious Disease
DX: E11.69 Type 2 diabetes mellitus with other specified complication (principal); M86.8X7 Other osteomyelitis, ankle and foot; L03.116 Cellulitis of left lower limb; Z79.4 Long term (current) use of insulin
CPT/HCPCS: 96365

== ENCOUNTER 2021-11-02 09:31 | Day surgery (SDC) | payer BC ==
[2021-11-02] MEDS ORDERED: CEFTRIAXONE 2 GM in DEXTROSE 5%-WATER 100 ML IVPB ONE (10:00)
[2021-11-02] MEDS ORDERED: DEXTROSE 5%-WATER 100 ML IVPB ONE (10:14)
[2021-11-02 13:34] VITALS: BP 127/87; PULSE 87; TEMP 98
== END 2021-11-02 13:34 | disposition home or self-care (01) ==
LOC: JINFUSION 09:31 → J7W 09:31 → JINFUSION 13:34
PROVIDERS: ATTEND Internal Medicine Infectious Disease
DX: E11.69 Type 2 diabetes mellitus with other specified complication (principal); M86.8X7 Other osteomyelitis, ankle and foot; L03.116 Cellulitis of left lower limb; Z79.4 Long term (current) use of insulin; E11.628 Type 2 diabetes mellitus with other skin complications; M86.672 Other chronic osteomyelitis, left ankle and foot
CPT/HCPCS: 82962; 96365; G0277

== ENCOUNTER 2021-11-03 11:23 | Day surgery (SDC) | payer BC ==
[2021-11-03] MEDS ORDERED: DEXTROSE 5%-WATER 100 ML IVPB ONE (11:32)
[2021-11-03 13:51] VITALS: BP 124/75; PULSE 81; TEMP 98
== END 2021-11-03 14:43 | disposition home or self-care (01) ==
LOC: JINFUSION 11:23 → J7W 11:23 → JINFUSION 14:43
PROVIDERS: ATTEND Internal Medicine Infectious Disease
DX: E11.69 Type 2 diabetes mellitus with other specified complication (principal); M86.8X7 Other osteomyelitis, ankle and foot; L03.116 Cellulitis of left lower limb; Z79.4 Long term (current) use of insulin
CPT/HCPCS: 96365

== ENCOUNTER 2021-11-04 10:52 | Day surgery (SDC) | payer BC ==
[2021-11-04] MEDS ORDERED: DEXTROSE 5%-WATER 100 ML IVPB ONE (11:34)
[2021-11-04 12:39] VITALS: BP 145/71; PULSE 84; TEMP 98
== END 2021-11-04 12:20 | disposition home or self-care (01) ==
LOC: JINFUSION 10:52 → J7W 10:54 → JINFUSION 12:20
PROVIDERS: ATTEND Internal Medicine Infectious Disease
DX: E11.69 Type 2 diabetes mellitus with other specified complication (principal); M86.8X7 Other osteomyelitis, ankle and foot; L03.116 Cellulitis of left lower limb
CPT/HCPCS: 96365

== ENCOUNTER 2021-11-05 10:56 | Day surgery (SDC) | payer BC ==
[2021-11-05] MEDS ORDERED: DEXTROSE 5%-WATER 100 ML IVPB ONE (11:14)
[2021-11-05 12:33] VITALS: TEMP 98
[2021-11-05 12:35] VITALS: BP 130/87; PULSE 80
== END 2021-11-05 14:48 | disposition home or self-care (01) ==
LOC: JINFUSION 10:56 → J7W 10:57 → JINFUSION 14:48
PROVIDERS: ATTEND Internal Medicine Infectious Disease
DX: E11.69 Type 2 diabetes mellitus with other specified complication (principal); M86.8X7 Other osteomyelitis, ankle and foot; L03.116 Cellulitis of left lower limb
CPT/HCPCS: 82962; 96365; 96367; G0277

== ENCOUNTER 2021-11-06 11:18 | Day surgery (SDC) | payer BC ==
[2021-11-06] MEDS ORDERED: DEXTROSE 5%-WATER 100 ML IVPB ONE (11:27)
[2021-11-06] MEDS ORDERED: CEFTRIAXONE 2 GM in DEXTROSE 5%-WATER 100 ML IVPB ONE (11:45)
[2021-11-06] MEDS ORDERED: CEFTRIAXONE 2 GM in DEXTROSE 5%-WATER - 100 ML IVPB ONE (11:45)
[2021-11-06 11:47] VITALS: TEMP 98.2
[2021-11-06 12:18] VITALS: BP 133/76; PULSE 78
== END 2021-11-06 12:22 | disposition home or self-care (01) ==
LOC: JINFUSION 11:18 → J7W 11:18 → JINFUSION 12:22
PROVIDERS: ATTEND Internal Medicine Infectious Disease
DX: E11.69 Type 2 diabetes mellitus with other specified complication (principal); M86.8X7 Other osteomyelitis, ankle and foot; L03.116 Cellulitis of left lower limb
CPT/HCPCS: 96365

== ENCOUNTER 2021-11-07 11:03 | Day surgery (SDC) | payer BC ==
[2021-11-07] MEDS ORDERED: CEFTRIAXONE 2 GM in DEXTROSE 5%-WATER 100 ML IVPB ONE (11:15)
[2021-11-07] MEDS ORDERED: DEXTROSE 5%-WATER 100 ML IVPB ONE (11:34)
[2021-11-07 13:08] VITALS: BP 117/78; PULSE 65; TEMP 97.8
== END 2021-11-07 13:09 | disposition home or self-care (01) ==
LOC: JINFUSION 11:03 → J7W 11:03 → JINFUSION 13:09
PROVIDERS: ATTEND Internal Medicine Infectious Disease
DX: E11.69 Type 2 diabetes mellitus with other specified complication (principal); M86.8X7 Other osteomyelitis, ankle and foot; L03.116 Cellulitis of left lower limb
CPT/HCPCS: 96365

== ENCOUNTER 2021-11-08 11:42 | Day surgery (SDC) | payer BC ==
[2021-11-08] MEDS ORDERED: DEXTROSE 5%-WATER 100 ML IVPB ONE (12:14)
[2021-11-08 12:22] VITALS: TEMP 98
[2021-11-08 13:05] VITALS: BP 122/74; PULSE 74
== END 2021-11-08 12:55 | disposition home or self-care (01) ==
LOC: JINFUSION 11:42 → J7W 11:43 → JINFUSION 12:55
PROVIDERS: ATTEND Internal Medicine Infectious Disease
DX: E11.69 Type 2 diabetes mellitus with other specified complication (principal); M86.8X7 Other osteomyelitis, ankle and foot; L03.116 Cellulitis of left lower limb
CPT/HCPCS: 96365

== ENCOUNTER 2021-11-09 11:39 | Day surgery (SDC) | payer BC ==
[2021-11-09] MEDS ORDERED: DEXTROSE 5%-WATER 100 ML IVPB ONE (12:02)
[2021-11-09 12:19] VITALS: TEMP 98.3
[2021-11-09 13:51] VITALS: BP 111/56; PULSE 72
== END 2021-11-09 12:55 | disposition home or self-care (01) ==
LOC: JINFUSION 11:39 → J7W 11:40 → JINFUSION 12:55
PROVIDERS: ATTEND Internal Medicine Infectious Disease
DX: E11.69 Type 2 diabetes mellitus with other specified complication (principal); M86.8X7 Other osteomyelitis, ankle and foot; L03.116 Cellulitis of left lower limb
CPT/HCPCS: 96365

== ENCOUNTER 2021-11-10 11:06 | Day surgery (SDC) | payer BC ==
[2021-11-10] MEDS ORDERED: DEXTROSE 5%-WATER 100 ML IVPB ONE (11:21)
[2021-11-10] MEDS ORDERED: CEFTRIAXONE 2 GM in DEXTROSE 5%-WATER 100 ML IVPB ONE (11:30)
[2021-11-10 11:33] VITALS: BP 122/66; PULSE 88; TEMP 98.6
== END 2021-11-10 13:30 | disposition home or self-care (01) ==
LOC: J7W 11:06 → JINFUSION 11:06
PROVIDERS: ATTEND Internal Medicine Infectious Disease
DX: E11.69 Type 2 diabetes mellitus with other specified complication (principal); M86.8X7 Other osteomyelitis, ankle and foot; L03.116 Cellulitis of left lower limb
CPT/HCPCS: 96365